=== PATIENT | male | born 1955 | race Caucasian/White ===

== ENCOUNTER → 2024-01-07 | Outpatient (CLI) | payer MEDICARE ==
--- NOTE | 2024-01-11 11:02 | PE ---
EXAMINATION TYPE: PET CT fusion skull to thigh DATE OF EXAM: 01/07/2024 CLINICAL INDICATION:Male, 68 years old with history of C34.2 MALIGNANT NEOPLASM OF MIDDLE LOBE, BRONC HUS; TECHNIQUE: Following the intravenous administration of 10.96 mCi of F-18 FDG, whole body images are performed from the skull base to the midthigh. Images are reviewed on the computer in the coronal, axial, and sagittal planes. Reconstructed rotating images are created on independent workstation and reviewed on the computer. A non-contrast CT is performed in conjunction with the PET scan. Glucose level 99 mg/dL CT DLP: 241 mGycm, Automated exposure control for dose reduction was used. COMPARISON: CT None, PET/CT None, FINDINGS: Mediastinal SUV mean is 2.1. Hepatic parenchyma SUV mean is 2.4. SKULL BASE AND NECK: * Left lower neck lymph node max SUV 3.6 measuring 5 mm in short axis. CHEST, MEDIASTINUM, AND HILAR REGION: No suspicious radiotracer activity. Abnormal radiotracer activity including: * Right perihilar soft tissue which is poorly evaluated without IV contrast measuring 2.6 x 1 point a centimeters on PET imaging. Max SUV 15.2. * Subcarinal lymph node max SUV 6.9 * Right low paratracheal lymph node max SUV 7.5. * Right high paratracheal max SUV 4.2. * Abnormal right tracer uptake within the left shoulder max SUV 8.9 and right supraclavicular region max SUV 8.6. * Right level 10R lymph node max SUV 15.7 measuring up to 2.3 cm on PET imaging. ABDOMEN AND PELVIS: No suspicious radiotracer activity. MUSCULOSKELETAL STRUCTURES: No suspicious radiotracer activity. OTHER CT: Atherosclerosis of the carotid bifurcations. Left chest wall [id number] tip terminates i n the superior vena cava. Mild to moderate coronary artery atherosclerosis. Scattered colonic diverti cula. IMPRESSION: Right perihilar FDG avid lymph nodes with mediastinal lymph nodes and left neck lymph nodes concernin g for malignancy. There is uptake within the left shoulder and right supraclavicular region which is poorly evaluated due to paucity of fat and streak artifact from [id number]-g-[id number] which may also represen t additional sites of metastatic disease.
== END | disposition home or self-care (01) ==
LOC: RADPETMAIN 09:39
PROVIDERS: ATTEND Internal Medicine Hematology & Oncology
DX: C34.2 Malignant neoplasm of middle lobe, bronchus or lung (principal); R59.0 Localized enlarged lymph nodes
CPT/HCPCS: 78815; A9552

== ENCOUNTER → 2024-06-28 | Outpatient (CLI) | payer MEDICARE ==
--- NOTE | 2024-07-18 18:56 | MR ---
EXAMINATION TYPE: MR SHOULDER RT WO/W INTRAVENOUS CON DATE OF EXAM: 06/28/2024 COMPARISON: FDG PET/CT 03/07/2024 HISTORY: Right shoulder pain, hx metastatic lung cancer. TECHNIQUE: Multiplanar, multiparameter MRI sequences of the right shoulder is performed without and w ith 7 mL intravenous Gadavist contrast material. FINDINGS: Subacromial/subdeltoid bursa: Mild-moderate volume of fluid noted. Rotator Cuff: Moderate intrasubstance T2 hyperintensity seen throughout the anterior to posterior ext ent of the supraspinatus tendon and, to a lesser extent, the infraspinatus tendon; changes consistent with relatively mild tendinosis with no partial or full-thickness rotator cuff tear. Subscapularis t endons have normal appearance as does the teres minor. Acromioclavicular Joint: Mild osteoarthritis changes with mild undersurface clavicular spurring produ cing minimal mass effect upon the myotendinous junction of the supraspinatus. Acromion is not downwar d sloping anteriorly or laterally Glenohumeral Joint: Mild osteoarthritis changes noted. Labrum: Intact on these non joint-distended sequences. Biceps Tendon: Intact and unremarkable. Skeletal structures: Tiny tug-related subchondral cysts at the infraspinatus tendon insertion upon th e humeral head noted. No suspicious/progressive bone findings. Extra articular soft tissues: No abnormalities. Contrast: No abnormal contrast-enhancement. IMPRESSION: Mild/moderate fluid within the subacromial/subdeltoid bursa. Negative for full-thickness or partial rotator cuff tear. Relatively mild tendinosis changes involvin g the supraspinatus > infraspinatus. Negative for metastatic neoplasm. [facility], , 07/18/2024 6:54 PM
== END | disposition home or self-care (01) ==
LOC: RADMRIMAIN 14:26
PROVIDERS: ATTEND Internal Medicine Hematology & Oncology
DX: C34.2 Malignant neoplasm of middle lobe, bronchus or lung

== ENCOUNTER 2024-08-09 11:53 | Observation (INO) | payer MEDICARE ==
[2024-08-09 12:45] LABS: ALT 22 U/L (4-49); AST 26 U/L (17-59); African American GFR (CKD) 79 (>60 ml/min/1.73 sqM); Albumin 3.5 g/dL (3.5-5.0); Alkaline Phosphatase 47 U/L (38-126); Anion Gap 6 mmol/L; Blood Urea Nitrogen 37 mg/dL (9-20); Calcium 8.2 mg/dL (8.4-10.2); Carbon Dioxide 23 mmol/L (22-30); Chloride 111 mmol/L (98-107); Glucose 88 mg/dL (74-99); Non-African American GFR(CKD) 68 (>60 ml/min/1.73 sqM); Sodium 140 mmol/L (137-145); Total Bilirubin 0.3 mg/dL (0.2-1.3); Total Protein 5.8 g/dL (6.3-8.2)
--- NOTE | 2024-08-09 12:47 | ED ---
General Adult HPI - General Chief complaint: Syncope Stated complaint: Syncope Time Seen by Provider: 08/09/24 11:56 Source: EMS Mode of arrival: EMS - History of Present Illness Initial comments: Dictation was produced using [employer] dictation software. please excuse any grammatical, word or spelling errors. Chief Complaint: 69-year-old male with history of cancer presents to the ER after syncopal event History of Present Illness: Patient 69-year-old male who is has past medical history of lung cancer gets treated with immunotherapy once monthly. He was at the primary care doctor's office for routine appointment. States that he has been having some groin pain. At the office he passed out. According to office documentation he was unconscious unresponsive for approximately 20 seconds. EMS was called he was given a liter of fluid. States at the bedside that he feels fine. Patient denies any pain complaints. Has never had any reactions like this to immunotherapy in the past. The ROS documented in this emergency department record has been reviewed and confirmed by me. Those systems with pertinent positive or negative responses have been documented in the HPI. All other systems are other negative and/or noncontributory. - Related Data Home Medications Medication Instructions Recorded Confirmed Aspirin EC [Ecotrin Low Dose] 81 mg PO BID 08/09/24 08/09/24 Benazepril HCl 20 mg PO DAILY 08/09/24 08/09/24 Cholecalciferol [Vitamin D3 (25 25 mcg PO HS 08/09/24 08/09/24 Mcg = 1000 Iu)] HYDROcodone/APAP 7.5-325MG [[place] 1 tab PO Q4H PRN 08/09/24 08/09/24 7.5-325] Multivitamins, Thera [Multivitamin 1 tab PO DAILY 08/09/24 08/09/24 (formulary)] Simvastatin [Zocor] 40 mg PO HS 08/09/24 08/09/24 Allergies Allergy/AdvReac Type Severity Reaction Status Date / Time No Known Allergies Allergy Verified 08/09/24 12:54 Review of Systems ROS Statement: Those systems with pertinent positive or pertinent negative responses have been documented in the HPI. ROS Other: All systems not noted in ROS Statement are negative. Past Medical History Past Medical History: Cancer, COPD, Hypertension Additional Past Medical History / Comment(s): thoracic aneurym, hypercholesterolemia History of Any Multi-Drug Resistant Organisms: None Reported Additional Past Surgical History / Comment(s): lung biopsy, vasectomy Past Psychological History: No Psychological Hx Reported Smoking Status: Current every day smoker Past Alcohol Use History: None Reported Past Drug Use History: None Reported General Exam - General Exam Comments Initial Comments: PHYSICAL EXAM: General Impression: Alert and oriented x3, not in acute distress HEENT: Normocephalic atraumatic, extra-ocular movements intact, pupils equal and reactive to light bilaterally, mucous membranes moist. Cardiovascular: Heart regular rate and rhythm Chest: Able to complete full sentences, no retractions, no tachypnea Abdomen: abdomen soft, non-tender, non-distended, no organomegaly Musculoskeletal: Pulses present and equal in all extremities, no peripheral edema Motor: no focal deficits noted Neurological: CN II-XII grossly intact, no focal motor or sensory deficits noted Skin: Intact with no visualized rashes Psych: Normal affect and mood Course Vital Signs 08/09/24 08/09/24 08/09/24 12:00 12:17 13:14 Temperature 93.9 F L Pulse Rate 52 L 50 L 52 L Respiratory 16 18 18 Rate Blood Pressure 96/57 82/50 95/58 O2 Sat by Pulse 96 94 L 100 Oximetry 08/09/24 13:34 Temperature Pulse Rate 49 L Respiratory 18 Rate Blood Pressure 97/53 O2 Sat by Pulse 100 Oximetry EKG Findings - EKG Comments: EKG Findings:: My EKG interpretation: Ventricular rate 49, sinus bradycardia,. 243, QRS 99, QTc 470. No OH prolongation, no QTC prolongation, no ST or T-wave changes noted. Overall, this EKG is unremarkable Medical Decision Making - Medical Decision Making Was pt. sent in by a medical professional or institution (, PA, COMIC BOOK ARTIST, urgent care, hospital, or care home...) When possible be specific @ -Primary care physician's office Did you speak to anyone other than the patient for history (EMS, parent, family, police, friend...)? What history was obtained from this source @ -Some history obtained from EMS Did you review nursing and triage notes (agree or disagree)? Why? @ -I reviewed and agree with nursing and triage notes Were old charts reviewed (outside hosp., previous admission, EMS record, old EKG, old radiological studies, urgent care reports/EKG's, care home records)? Report findings @ -PCP clinics charting was reviewed Differential Diagnosis (chest pain, altered mental status, abdominal pain women, abdominal pain men, vaginal bleeding, musculoskeletal, weakness, fever, dyspnea, syncope, headache, dizziness, GI bleed, back pain, seizure, CVA, palpatations, mental health)? @ -Differential Syncope: Valvular disease, hypertrophic cardiomyopathy, pulmonary embolism, tamponade, tachycardia, bradycardia, [place], hypovolemia, hemorrhage, dissection, anemia, intracranial hemorrhage, seizure, hypoglycemia, carbon monoxide poisoning, this is not meant to be an all-inclusive list. EKG interpreted by me (3pts min.). @ -See above X-rays interpreted by me (1pt min.). @ -None done CT interpreted by me (1pt min.). @ -None done U/S interpreted by me (1pt. min.). @ -None done What testing was considered but not performed or refused? (CT, X-rays, U/S, labs)? Why? @ -None What meds were considered but not given or refused? Why? @ -None Was smoking cessation discussed for >3mins.? @ -No Were there social determinants of health that impacted care today? How? (Homelessness, low income, unemployed, alcoholism, drug addiction, transportation, low edu. Level, literacy, decrease access to med. care, [place] [facility], rehab)? @ -No Was there de-escalation of care discussed even if they declined (Discuss DNR or withdrawal of care, Hospice)? DNR status @ -No What co-morbidities impacted this encounter? (DM, HTN, Smoking, COPD, CAD, Cancer, CVA, ARF, Chemo, Hep., AIDS, mental health diagnosis, sleep apnea, mo rbid obesity)? @ -Cancer history Was patient admitted / discharged? Hospital course, mention meds given and route, prescriptions, significant lab abnormalities, going to OR and other pertinent info. @ -69-year-old male presents to the emergency department after syncopized and at his primary care physician's office. Patient was found to be slightly hypotensive upon arrival. He is also slightly bradycardic. Patient Nuys any complaints. Well-appearing at the bedside. Laboratory evaluation obtained. Labs are within acceptable limits. Patient slightly hypothermic. Placed on Ashlee hugger. Pending inflammatory markers. Patient will be admitted for hydration further monitoring. Did you discuss the management of the patient with other professionals (professionals i.e. , PA, COMIC BOOK ARTIST, lab, RT, psych nurse, social science analyst, blast furnace tender, teacher, commercial credit officer, dependency case manager)? Give summary @ -Case discussed with hospitalist for admission Was critical care preformed (if so, how long)? @ -Yes, 33 minutes for management of unstable vital signs Undiagnosed new problem with uncertain prognosis? @ -No Drug Therapy requiring intensive monitoring for toxicity (Heparin, Nitro, Insulin, Cardizem)? @ -No Were any procedures done? @ -No Diagnosis/symptom? Acute, or Chronic, or Acute on Chronic? Uncomplicated (without systemic symptoms) or Complicated (systemic symptoms)? @ -Syncope Side effects of treatment? @ -No Exacerbation, Progression, or Severe Exacerbation? @ -No Poses a threat to life or bodily function? How? (Chest pain, [place], [place], pneumonia, PE, COPD, DKA, ARF, appy, cholecystitis, CVA, Diverticulitis, Homicidal, Suicidal, threat to staff... and all critical care pts) @ -yes - Lab Data Result diagrams: 08/09/24 12:24 08/09/24 12:24 Lab Results 08/09/24 08/09/24 08/09/24 Range/Units 12:24 12:24 12:24 WBC 4.5 (3.8-10.6) k/uL RBC 2.92 L (4.30-5.90) m/uL Hgb 9.9 L (13.0-17.5) gm/dL Hct 30.1 L (39.0-53.0) % MCV 102.8 H (80.0-100.0) fL MCH 34.0 (25.0-35.0) pg MCHC 33.1 (31.0-37.0) g/dL RDW 13.1 (11.5-15.5) % Plt Count 158 (150-450) k/uL MPV 7.5 Neutrophils % 50 % Lymphocytes % 33 % Monocytes % 4 % Eosinophils % 11 % Basophils % 0 % Neutrophils # 2.3 (1.3-7.7) k/uL Lymphocytes # 1.5 (1.0-4.8) k/uL Monocytes # 0.2 (0-1.0) k/uL Eosinophils # 0.5 (0-0.7) k/uL Basophils # 0.0 (0-0.2) k/uL Macrocytosis Slight Sodium 140 (137-145) mmol/L Potassium 4.0 (3.5-5.1) mmol/L Chloride 111 H (98-107) mmol/L Carbon Dioxide 23 (22-30) mmol/L Anion Gap 6 mmol/L BUN 37 H (9-20) mg/dL Creatinine 1.11 (0.66-1.25) mg/dL Est GFR (CKD-EPI)AfAm 79 (>60 ml/min/1.73 sqM) Est GFR (CKD-EPI)NonAf 68 (>60 ml/min/1.73 sqM) Glucose 88 (74-99) mg/dL Calcium 8.2 L (8.4-10.2) mg/dL Total Bilirubin 0.3 (0.2-1.3) mg/dL AST 26 (17-59) U/L ALT 22 (4-49) U/L Alkaline Phosphatase 47 (38-126) U/L Troponin I <0.012 (0.000-0.034) ng/mL Total Protein 5.8 L (6.3-8.2) g/dL Albumin 3.5 (3.5-5.0) g/dL Disposition Clinical Impression: Syncope Disposition: ADMITTED IP TO THIS HOSP Condition: Fair Referrals: Isa Hearn MD [Primary Care Provider] - 1-2 days Decision Time: 13:55
[2024-08-09 12:56] LABS: Basophils % (A) 0 %; Eosinophils # (A) 0.5 k/uL (0-0.7); Eosinophils % (A) 11 %; HCT 30.1 % (39.0-53.0); HGB 9.9 gm/dL (13.0-17.5); Lymphocytes # (A) 1.5 k/uL (1.0-4.8); Lymphocytes % (A) 33 %; MCHC 33.1 g/dL (31.0-37.0); MCV 102.8 fL (80.0-100.0); Macrocytosis Slight; Mean Platelet Volume 7.5; Monocytes # (A) 0.2 k/uL (0-1.0); Monocytes % (A) 4 %; Neutrophils # (A) 2.3 k/uL (1.3-7.7); Neutrophils % (A) 50 %; Platelet Count 158 k/uL (150-450); RBC 2.92 m/uL (4.30-5.90); RDW 13.1 % (11.5-15.5); WBC 4.5 k/uL (3.8-10.6)
[2024-08-09] MEDS: SODIUM CHLORIDE 0.9% 1,000 ML IV STA (13:33)
[2024-08-09] MEDS ORDERED: NALOXONE 0.4 MG/ML 1 ML VIAL IV PRN (13:50)
[2024-08-09] MEDS ORDERED: ONDANSETRON 4 MG/2 ML VIAL IVP PRN (13:50)
[2024-08-09] MEDS ORDERED: ACETAMINOPHEN TAB 325 MG TAB PO PRN (13:50)
--- NOTE | 2024-08-09 15:24 | US ---
EXAMINATION TYPE: US carotid duplex BILAT DATE OF EXAM: 08/09/2024 COMPARISON: NONE CLINICAL INDICATION: Male, 69 years old with history of Syncope; TECHNIQUE: Grayscale, color Doppler and spectral Doppler evaluation of the bilateral carotid systems and vertebral arteries.Indirect Doppler criteria was utilized. FINDINGS: EXAM MEASUREMENTS: RIGHT: Peak Systolic Velocity (PSV) cm/sec ----- Right CCA: 61.1 ----- Right ICA: 122.5 ----- Right ECA: 53.1 ICA/CCA ratio: 2.0 RIGHT: End Diastole cm/sec ----- Right CCA: 23.7 ----- Right ICA: 40.9 ----- Right ECA: 5.7 LEFT: Peak Systolic Velocity (PSV) cm/sec ----- Left CCA: 79.8 ----- Left ICA: 77.1 ----- Left ECA: 56.0 ICA/CCA ratio: 1.0 LEFT: End Diastole cm/sec ----- Left CCA: 24.8 ----- Left ICA: 32.8 ----- Left ECA: 5.6 VERTEBRALS (direction of flow): Right Vertebral: Antegrade Left Vertebral: Antegrade Rhythm: Normal IMPRESSION: Right: Less than 50% stenosis of the carotid bifurcation. Normal (no stenosis)=ICA PSV < 125 cm/s: ra marcie < 2.0: ICA EDV<40 cm/s. Left: Less than 50% stenosis of the carotid bifurcation. Normal (no stenosis)=ICA PSV < 125 cm/s: rat io < 2.0: ICA EDV<40 cm/s. Criteria for Assigning % of Stenosis / Diameter reduction (Estimation based on the indirect measurements of the internal carotid artery velocities (ICA PSV). 1. Normal (no stenosis)=ICA PSV < 125 cm/s: ratio < 2.0: ICA EDV<40 cm/s. 2. Less than 50% stenosis=ICA PSV < 125 cm/s: ratio < 2.0: ICA EDV<40 cm/s. 3. 50 to 69% stenosis=ICA PSV of 125 to 230 cm/s: ration 2.0 ? 4.0: ICA EDV 40-100 cm/s. 4. Greater than 70% stenosis to near occlusion= ICA PSV > 230 cm/s: ratio > 4.0: ICA EDV > 100 cm/s. 5. Near occlusion= ICA PSV velocities may be low or undetectable: variable ratio and ICA EDV. 6. Total occlusion=unable to detect flow. [facility], , 08/09/2024 3:22 PM
[2024-08-09] MEDS: SODIUM CHLORIDE 0.9% 1,000 ML IV SCH (15:56)
--- NOTE | 2024-08-09 15:58 | XR ---
EXAMINATION TYPE: XR chest 2V DATE OF EXAM: 08/09/2024 3:30 PM CLINICAL INDICATION: Male, 69 years old with history of syncope; [facility] COMPARISON: None TECHNIQUE: XR chest 2V Frontal view of the chest. FINDINGS: Lungs/Pleura: Subtle airspace opacities are seen in the right lower lung. There is no evidence of ple ural effusion, focal consolidation, or pneumothorax. Pulmonary vascularity: Unremarkable. Heart/mediastinum: Cardiomediastinal silhouette is unremarkable. Musculoskeletal: No acute osseous pathology. Other findings: None Lines/Tubes: [id number]-c-[id number] projecting over the left hemithorax with distal tip at the cavoatrial junction. IMPRESSION: Right lower lung airspace opacities correlate for developing pneumonia. [facility], , 08/09/2024 3:55 PM
[2024-08-09 16:33] LABS: Appearance,Urine Clear (Clear); Bilirubin,Urine Negative (Negative); Blood,Urine Negative (Negative); Color,Urine Colorless; Glucose,Urine (UA) Negative (Negative); Ketones,Urine Negative (Negative); Leukocyte Esterase,Urine Negative (Negative); Nitrite,Urine Negative (Negative); PH, Urine 5.5 (5.0-8.0); Protein,Urine Negative (Negative); Specific Gravity,Urine 1.014 (1.001-1.035); Urobilinogen,Urine <2.0 mg/dL (<2.0)
--- NOTE | 2024-08-09 21:54 | P.CONS ---
History of Present Illness - Reason for Consult Consult date: 08/09/24 SIRS Requesting physician: Arian Gordon - Chief Complaint Passed out x 1 day - History of Present Illness Patient is a 69-year-old male with a past medical history significant for COPD hypertension thoracic aneurysm, lung cancer on immunotherapy, current everyday smoker apparently patient did have a routine follow-up appointment with his primary care physician patient was having some groin pain and subsequently passed out in the physician office EMS was called and he received a fluid bolus and subsequently patient has been brought into the hospital on arrival and the patient was noted to be hypothermic with a temperature of 93.9 degrees following right patient was bradycardic mildly hypeotensive but not requiring any pressor support and not hypoxic, patient denies having any headache or URI symptoms denies having any chest pain shortness of breath or cough patient denies having any nausea vomiting abdominal pain and no diarrhea patient did have a white count of 4.5 with no left shift BUN was mildly elevated creatinine was normal liver enzymes are normal urine has been negative influenza RSV COVID testing has been negative patient did have a no focal consultation or pneumothorax, patient has been admitted to hospital infectious he was consulted for SIRS Review of Systems Positive point and negatives has been mentioned in the HPI, complete review of systems was performed and all other systems are negative Past Medical History Past Medical History: Cancer, COPD, Hypertension Additional Past Medical History / Comment(s): thoracic aneurym, hype rcholesterolemia History of Any Multi-Drug Resistant Organisms: None Reported Additional Past Surgical History / Comment(s): lung biopsy, vasectomy Past Psychological History: No Psychological Hx Reported Smoking Status: Current every day smoker Past Alcohol Use History: None Reported Past Drug Use History: None Reported Medications and Allergies Home Medications Medication Instructions Recorded Confirmed Type Aspirin EC [Ecotrin Low Dose] 81 mg PO BID 08/09/24 08/09/24 History Benazepril HCl 20 mg PO DAILY 08/09/24 08/09/24 History Cholecalciferol [Vitamin D3 (25 25 mcg PO HS 08/09/24 08/09/24 History Mcg = 1000 Iu)] HYDROcodone/APAP 7.5-325MG [[place] 1 tab PO Q4H PRN 08/09/24 08/09/24 History 7.5-325] Multivitamins, Thera [Multivitamin 1 tab PO DAILY 08/09/24 08/09/24 History (formulary)] Simvastatin [Zocor] 40 mg PO HS 08/09/24 08/09/24 History Allergies Allergy/AdvReac Type Severity Reaction Status Date / Time No Known Allergies Allergy Verified 08/09/24 12:54 Physical Exam Vitals: Vital Signs Temp Pulse Resp BP Pulse Ox 08/09/24 14:20 56 L 18 86/60 08/09/24 13:34 49 L 18 97/53 100 08/09/24 13:14 93.9 F L 52 L 18 95/58 100 08/09/24 12:17 50 L 18 82/50 94 L 08/09/24 12:00 52 L 16 96/57 96 Intake and Output 08/08/24 08/09/24 08/09/24 22:59 06:59 14:59 Other: Weight 68.039 kg GENERAL DESCRIPTION: Elderly male lying in bed, no distress. No tachypnea or accessory muscle of respiration use. HEENT: Shows Pallor , no scleral icterus. Oral mucous membrane is dry. NECK: Trachea central, no thyromegaly. LUNGS: Unlabored breathing. Clear to auscultation anteriorly. No wheeze or crac kle. HEART: S1, S2, regular rate and rhythm. No loud murmur ABDOMEN: Soft, no tenderness , guarding or rigidity, no organomegaly EXTREMITIES: No edema of feet. SKIN: No rash, no masses palpable. NEUROLOGICAL: The patient is awake, alert, oriented x3, mood and affect normal. Results CBC & Chem 7: 08/09/24 12:24 08/09/24 12:24 Labs: Abnormal Lab Results - Last 24 Hours (Table) 08/09/24 08/09/24 Range/Units 12:24 12:24 RBC 2.92 L (4.30-5.90) m/uL Hgb 9.9 L (13.0-17.5) gm/dL Hct 30.1 L (39.0-53.0) % MCV 102.8 H (80.0-100.0) fL Chloride 111 H (98-107) mmol/L BUN 37 H (9-20) mg/dL Calcium 8.2 L (8.4-10.2) mg/dL Total Protein 5.8 L (6.3-8.2) g/dL Assessment and Plan (1) Hypothermia Current Visit: Yes Status: Acute Code(s): T68.XXXA - HYPOTHERMIA, INITIAL E NCOUNTER SNOMED Code(s): 308363468 (2) SIRS (systemic inflammatory response syndrome) Current Visit: Yes Status: Acute Code(s): R65.10 - SIRS OF NON-INFECTIOUS ORIGIN W/O ACUTE ORGAN DYSFUNCTION SNOMED Code(s): 831085821 Plan: 1patient presented to the hospital after apparently the he did passed out at the physician office patient on arrival to the ER was noted to be hypothermic and did have bradycardia and mildly hypotensive however he did have a normal white count and no signs and symptoms suggestive of infectious etiology chest x- ray did not show any consolidation his abdomen is soft no evidence of any cell ulitis or joint swelling 2-we will follow-up on the blood culture as well as inflammatory markers 3-we will hold on adding any systemic antibiotic therapy while waiting for the workup to be completed We will follow on clinical condition and cultures to further adjust medication if needed Thank you for this consultation we will follow the patient along with you Dictation was produced using [email or web address] dictation software. please excuse any grammatical, word or spelling errors. Time with Patient: Greater than 30
[2024-08-10 06:00] VITALS: RESP 18
[2024-08-10] MEDS ORDERED: HYDROcodone/APAP 7.5-325MG 1 EACH TAB PO PRN (08:32)
[2024-08-10] MEDS ORDERED: IOPAMIDOL CONTRAST (ORAL USE) VIAL PO PRN (09:29)
--- NOTE | 2024-08-10 09:35 | CA ---
Transthoracic Echo Report Name: Praful Farmer Age: 69 Gender: M : 1955 Exam Date: 08/09/2024 15:45 Exam Location: [place] [facility] Ht (in): 70 Wt (lb): 150 Ordering Physician: Yamilex Killian MD Attending/Referring Phys: Dust Sampler Gina Martin RDCS Procedure CPT: Indications: Syncope Cardiac Hx: Technical Quality: Fair Contrast 1: Total Dose (mL): Contrast 2: Total Dose (mL): MEASUREMENTS (Male / Female) Normal Values 2D ECHO LV Diastolic Diameter PLAX 4.9 cm 4.2 - 5.9 / 3.9 - 5.3 cm LV Systolic Diameter PLAX 2.5 cm IVS Diastolic Thickness 1.1 cm 0.6 - 1.0 / 0.6 - 0.9 cm LVPW Diastolic Thickness 1.3 cm 0.6 - 1.0 / 0.6 - 0.9 cm LV Relative Wall Thickness 0.5 RV Internal Dim ED PLAX 3.3 cm LA Volume 54.4 cm??? 18 - 58 / 22 - 52 cm??? LA Volume Index 29.7 cm???/m??? 16 - 28 cm???/m??? M-MODE Aortic Root Diameter MM 3.0 cm LA Systolic Diameter MM 5.1 cm LA Ao Ratio MM 1.7 AV Cusp Separation MM 5.0 cm DOPPLER AV Peak Velocity 141.7 cm/s AV Peak Gradient 8.0 mmHg AV Mean Velocity 106.3 cm/s AV Mean Gradient 4.9 mmHg AV Velocity Time Integral 34.8 cm LVOT Peak Velocity 108.3 cm/s LVOT Peak Gradient 4.7 mmHg LVOT Velocity Time Integral 30.2 cm MV Area PHT 3.6 cm??? Mitral E Point Velocity 87.1 cm/s Mitral A Point Velocity 76.9 cm/s Mitral E to A Ratio 1.1 MV Deceleration Time 211.9 ms MV E' Velocity 10.4 cm/s Mitral E to MV E' Ratio 8.4 TR Peak Velocity 184.7 cm/s TR Peak Gradient 13.6 mmHg Right Ventricular Systolic Press 18.6 mmHg FINDINGS Left Ventricle Mildly increased left ventricular wall thickness. Left ventricular cavity size normal. Normal left ventricular systolic function with no obvious regional wall motion abnormalities. Left ventricular ejection fraction is estimated at 55-60 %. Right Ventricle Normal right ventricular size and function. Right ventricular systolic pressure within normal limits. Right Atrium Normal right atrial size. Normal right atrial size. Left Atrium Mildly increased left atrial volume. Mitral Valve Structurally normal mitral valve. No mitral stenosis. Mild mitral regurgitation. Mitral valve thickened. Mild mitral annular calcification. Aortic Valve Possibly Trileaflet aortic valve. No aortic valve stenosis or regurgitation. Mildly calcified Tricuspid Valve Structurally normal tricuspid valve. Mild tricuspid regurgitation. Pulmonic Valve Structurally normal pulmonic valve. Trace pulmonic regurgitation. Pericardium No pericardial effusion. Aorta Normal size aortic root and proximal ascending aorta. CONCLUSIONS Normal LV size and systolic function. Aortic valve sclerosis with mild calcification. Mild mitral annular calcification. Mild mitral and tricuspid insufficiency. No pericardial effusion. No pulmonary hypertension Previewed by: Dr. Anat Jeff MD (Electronically Signed) Final Date: 10 August 2024 09:34
[2024-08-10] MEDS: lisinopriL 20 MG TAB PO SCH (09:39)
[2024-08-10] MEDS: ASPIRIN 81 MG PO SCH (09:39)
[2024-08-10] MEDS: MULTIVITAMINS, THERA 1 EACH TAB PO SCH (09:39)
--- NOTE | 2024-08-10 10:22 | CT ---
EXAMINATION TYPE: CT pelvis wo con CT DLP: 242.5 mGycm, Automated exposure control for dose reduction was used. DATE OF EXAM: 08/10/2024 10:01 AM COMPARISON: PET CT 03/07/2024 CLINICAL INDICATION:Male, 69 years old with history of right groin pain; right inguinal pain x1 year TECHNIQUE: Standard CT of the pelvis without IV or oral contrast. Lack of IV or oral contrast limit s evaluation of solid and hollow organ viscera. Coronal and sagittal reformats were performed. FINDINGS: BLADDER: Unremarkable REPRODUCTIVE: Bilateral hydroceles. BOWEL: No focal bowel wall thickening or surrounding inflammatory changes. Distal colonic diverticulo sis without evidence for acute diverticulitis. Moderate amount of stool present within the rectum. No evidence of bowel obstruction. PERITONEUM: No evidence of pneumoperitoneum or free fluid. VASCULATURE: Moderate atherosclerotic calcification of the visualized aorta and its branches. MUSCULOSKELETAL: No acute osseous abnormalities. Osteoarthritic changes of both hips with right great er than left. Mild degenerative disc disease of the visualized lower lumbar spine. LYMPH NODES: No gross evidence for lymphadenopathy. SOFT TISSUE/ABDOMINAL WALL: Unremarkable. No inguinal hernia identified. IMPRESSION: 1. No acute pelvic process within limitations of a noncontrast exam. 2. Bilateral hydroceles. 3. Colonic diverticulosis without evidence for acute diverticulitis. 4. Osteoarthritic changes of both hips with right greater than left. [facility], , 08/10/2024 10:19 AM
[2024-08-10 10:41] VITALS: BP 92/57; PULSE 52; TEMP 98.1
--- NOTE | 2024-08-10 11:10 | P.CRDCN ---
History of Present Illness Consult date: 08/10/24 Reason for Consult (text): Bradycardia History of present illness: This is a 69-year-old male with past medical history of hyperlipidemia, hype rtension. We have been asked to evaluate the patient for bradycardia. Patient states that he has had an ongoing problem with a right groin pain or hernia. He went to his PCP and while he was in the office, his physician was manipulating the right groin and he developed significant pain sweats and blacked out. He states he is feeling fine now. He states he has been up and walking in the hallways without any difficulty. No lightheadedness or dizziness. He denies having any chest pain or shortness of breath. Blood pressure 92/57, heart rate 52, pulse ox 99% on room air. Patient's lowest heart rate was 49. EKG: Sinus rhythm with no acute ST-T wave changes. Chest x-ray: Right lower lung airspace opacities correlate for developing pneumonia. Carotid ultrasound: Less than 50% stenosis bilateral carotid bifurcation Echocardiogram reveals EF of 55 to 60%. Aortic valve sclerosis with mild calcification. Mild mitral calcification. Mild mitral and tricuspid insufficiency. No pericardial effusion. No pulmonary hypertension. Pelvis CT no acute process. Laboratory studies: WBC 4.5, hemoglobin 9.9. Sodium 140, potassium 4, BUN 37 and creatinine 1.11. Troponin negative x 1. TSH 3.05. Procalcitonin 0.05. C- reactive protein less than 0.5. Influenza A, influenza B, RSV, COVID-19 not detected. UA negative. Home cardiac medications: Aspirin 81 mg twice daily, benazepril 20 mg daily, simvastatin 40 mg daily Review Of Systems: At the time of my exam: CONSTITUTIONAL: Denies fever or chills. HEENT: Denies blurred vision, vision changes, or eye pain. Denies hemoptysis CARDIOVASCULAR: Denies chest pain. Denies orthopnea. Denies PND. Denies palpitations RESPIRATORY: Denies shortness of breath. GASTROINTESTINAL: Denies abdominal pain. Denies nausea or vomiting. HEMATOLOGIC: Denies bleeding disorders. GENITOURINARY: Denies any blood in urine. SKIN: Denies puritis. Denies rash. Physical examination: Gen: This is a 69-year-old male in no acute distress VS: reviewed HEENT: Head is atraumatic, normocephalic. Pupils equal, round. Sclerae is anicteric. NECK: Supple. No JVD. LUNGS: Clear to auscultation. No wheezes or rhonchi. No intercostal retractions. HEART: Regular rate and rhythm. No murmur. ABDOMEN: Soft No tenderness. EXTREMITIES: No pedal edema. No calf tenderness. NEUROLOGICAL: Patient is awake, alert and oriented x3. Assessment: Asymptomatic bradycardia Vasovagal episodes secondary to pain Hyperlipidemia Hypertension currently low blood pressure readings Plan: Resume patient's home cardiac medications but hold benazepril until patient is home Patient is cleared for discharge from cardiology May follow-up with Dr. Ford in 2 weeks. Thank you kindly for this consultation. Nurse practitioner note has been reviewed, I agree with documented findings and plan of care. Patient was seen and examined. Past Medical History Past Medical History: Cancer, COPD, Hypertension Additional Past Medical History / Comment(s): thoracic aneurym, hypercholesterolemia History of Any Multi-Drug Resistant Organisms: None Reported Additional Past Surgical History / Comment(s): lung biopsy, vasectomy Past Psychological History: No Psychological Hx Reported Smoking Status: Current every day smoker Past Alcohol Use History: None Reported Past Drug Use History: None Reported Medications and Allergies Home Medications Medication Instructions Recorded Confirmed Type Aspirin EC [Ecotrin Low Dose] 81 mg PO BID 08/09/24 08/09/24 History Benazepril HCl 20 mg PO DAILY 08/09/24 08/09/24 History Cholecalciferol [Vitamin D3 (25 25 mcg PO HS 08/09/24 08/09/24 History Mcg = 1000 Iu)] HYDROcodone/APAP 7.5-325MG [[place] 1 tab PO Q4H PRN 08/09/24 08/09/24 History 7.5-325] Multivitamins, Thera [Multivitamin 1 tab PO DAILY 08/09/24 08/09/24 History (formulary)] Simvastatin [Zocor] 40 mg PO HS 08/09/24 08/09/24 History Allergies Allergy/AdvReac Type Severity Reaction Status Date / Time No Known Allergies Allergy Verified 08/09/24 12:54 Physical Exam Vitals: Vital Signs Temp Pulse Resp BP Pulse Ox 08/10/24 07:21 98.0 F 61 18 110/64 99 08/10/24 05:59 61 18 119/56 98 08/10/24 04:00 56 L 16 104/60 98 08/10/24 02:09 65 08/10/24 00:05 58 L 16 98/62 97 08/09/24 22:34 97.8 F 60 17 105/62 08/09/24 19:22 59 L 18 08/09/24 18:08 97.8 F 60 18 88/47 96 08/09/24 16:32 97.8 F 51 L 18 103/60 99 08/09/24 14:20 56 L 18 86/60 08/09/24 13:34 49 L 18 97/53 100 08/09/24 13:14 93.9 F L 52 L 18 95/58 100 08/09/24 12:17 50 L 18 82/50 94 L 08/09/24 12:00 52 L 16 96/57 96 Results 08/09/24 12:24 08/09/24 12:24 Cardiac Enzymes 08/09/24 08/09/24 Range/Units 12:24 12:24 AST 26 (17-59) U/L Troponin I <0.012 (0.000-0.034) ng/mL CBC 08/09/24 Range/Units 12:24 WBC 4.5 (3.8-10.6) k/uL RBC 2.92 L (4.30-5.90) m/uL Hgb 9.9 L (13.0-17.5) gm/dL Hct 30.1 L (39.0-53.0) % Plt Count 158 (150-450) k/uL Comprehensive Metabolic Panel 08/09/24 Range/Units 12:24 Sodium 140 (137-145) mmol/L Potassium 4.0 (3.5-5.1) mmol/L Chloride 111 H (98-107) mmol/L Carbon Dioxide 23 (22-30) mmol/L BUN 37 H (9-20) mg/dL Creatinine 1.11 (0.66-1.25) mg/dL Glucose 88 (74-99) mg/dL Calcium 8.2 L (8.4-10.2) mg/dL AST 26 (17-59) U/L ALT 22 (4-49) U/L Alkaline Phosphatase 47 (38-126) U/L Total Protein 5.8 L (6.3-8.2) g/dL Albumin 3.5 (3.5-5.0) g/dL Current Medications Generic Name Dose Route Start Last Admin Trade Name Freq PRN Reason Stop Dose Admin Acetaminophen 650 mg 08/09/24 13:50 Acetaminophen Tab 325 Mg Tab PO Q6HR PRN Mild Pain or Fever > 100.5 Sodium Chloride 1,000 mls @ 75 mls/hr 08/09/24 14:00 08/10/24 04:36 Saline 0.9% IV Not Given .[id number] JOSUE Naloxone HCl 0.2 mg 08/09/24 13:50 Naloxone 0.4 Mg/Ml 1 Ml Vial IV Q2M PRN Opioid Reversal Ondansetron HCl 4 mg 08/09/24 13:50 Ondansetron 4 Mg/2 Ml Vial IVP Q8HR PRN Nausea And Vomiting 08/09/24 12:24 08/09/24 12:24
--- NOTE | 2024-08-10 12:35 | P.HPIM ---
History of Present Illness H&P Date: 08/09/24 Praful Farmer, is a 69-year-old male who presented to [facility] emergency room with a chief complaint of syncope. Patient reports he was at his PCP getting examined for right groin pain when he experienced significant pain with exam and then became lightheaded and apparently had a syncopal episode. Patient denies any associated chest pain or shortness of breath. Patient denies nausea vomiting or diarrhea. Patient denies any urinary burning or frequency He was evaluated in the emergency room vital examination on presentation revealed temp 97.8, heart rate 60, respiratory rate 18, blood pressure 103/60 with a pulse ox of 99% on room air Laboratory data reveals white blood cell 4.5, hemoglobin 9.9, creatinine 1.11 bun 37 troponin negative procalcitonin 0.05. UA negative influenza RSV and COVID-19 negative Testing in the emergency room revealed EKG showing sinus bradycardia with first- degree AV block, carotid Doppler less than 50% stenosis bilaterally. 2D echo completed showing an EF of 55 to 60%. Chest x-ray showing right lower lung airspace opacities correlate for developing pneumonia Patient was admitted to medical floor for further evaluation and treatment. C ardiology and infectious disease services consulted Past medical history is significant for lung cancer, COPD, hypertension, hyperlipidemia, thoracic aneurysm and nicotine dependence On review of systems. Patient is alert and oriented x 3. Patient is complaining of right groin pain with palpation. Patient denies chest pain or shortness of breath. Patient denies any urinary burning or frequency Review of Systems Please refer to HPI otherwise unremarkable Past Medical History Past Medical History: Cancer, COPD, Hypertension Additional Past Medical History / Comment(s): thoracic aneurym, hyperchol esterolemia History of Any Multi-Drug Resistant Organisms: None Reported Additional Past Surgical History / Comment(s): lung biopsy, vasectomy Past Psychological History: No Psychological Hx Reported Smoking Status: Current every day smoker Past Alcohol Use History: None Reported Past Drug Use History: None Reported Medications and Allergies Home Medications Medication Instructions Recorded Confirmed Type Aspirin EC [Ecotrin Low Dose] 81 mg PO BID 08/09/24 08/09/24 History Benazepril HCl 20 mg PO DAILY 08/09/24 08/09/24 History Cholecalciferol [Vitamin D3 (25 25 mcg PO HS 08/09/24 08/09/24 History Mcg = 1000 Iu)] HYDROcodone/APAP 7.5-325MG [[place] 1 tab PO Q4H PRN 08/09/24 08/09/24 History 7.5-325] Multivitamins, Thera [Multivitamin 1 tab PO DAILY 08/09/24 08/09/24 History (formulary)] Simvastatin [Zocor] 40 mg PO HS 08/09/24 08/09/24 History Allergies Allergy/AdvReac Type Severity Reaction Status Date / Time No Known Allergies Allergy Verified 08/09/24 12:54 Physical Exam Vitals: Vital Signs Temp Pulse Resp BP Pulse Ox 08/09/24 14:20 56 L 18 86/60 08/09/24 13:34 49 L 18 97/53 100 08/09/24 13:14 93.9 F L 52 L 18 95/58 100 08/09/24 12:17 50 L 18 82/50 94 L 08/09/24 12:00 52 L 16 96/57 96 Intake and Output 08/08/24 08/09/24 08/09/24 22:59 06:59 14:59 Other: Weight 68.039 kg In general patient is alert and oriented x 3 in no distress HEENT head normocephalic and atraumatic Neck is supple no JVD no goiter no lymphadenopathy no carotid bruit Chest examination is clear to auscultation no crackles no wheezing Cardiac exam reveals regular heart sounds S1 and S2 no gallops no murmurs Abdomen is soft nontender no organomegaly with normal bowel sounds Extremity exam reveals no edema no cyanosis or clubbing Neurological examination reveals no gross focal deficits Results CBC & Chem 7: 08/09/24 12:24 08/09/24 12:24 Labs: Abnormal Lab Results - Last 24 Hours (Table) 08/09/24 08/09/24 Range/Units 12:24 12:24 RBC 2.92 L (4.30-5.90) m/uL Hgb 9.9 L (13.0-17.5) gm/dL Hct 30.1 L (39.0-53.0) % MCV 102.8 H (80.0-100.0) fL Chloride 111 H (98-107) mmol/L BUN 37 H (9-20) mg/dL Calcium 8.2 L (8.4-10.2) mg/dL Total Protein 5.8 L (6.3-8.2) g/dL Assessment and Plan Assessment: 1. Syncopal episode likely vasovagal secondary to pain 2. Right groin pain 3. History of hypertension 4. History of hyperlipidemia 5. History of lung cancer currently on immunotherapy 6. Current every day smoker At this time patient will be admitted Cardiology and infectious disease services consulted Pelvic CT ordered Carotid Doppler and 2D echo completed Time with Patient: Greater than 30 (Greater than 60% of the total time spent in counseling and coordination of care)
--- NOTE | 2024-08-10 12:39 | P.DS ---
Providers Date of admission: 08/09/24 13:52 Expected date of discharge: 08/10/24 Attending physician: Yamilex Killian Consults: 08/09/24 13:50 Consult Physician Routine Consulting Provider: Cassi Baptiste Consult Reason/Comments: sirs Do you want consulting provider notified?: Yes 08/09/24 13:54 Consult Physician Routine Consulting Provider: Reinaldo Ruiz Consult Reason/Comments: bradycardia Do you want consulting provider notified?: Yes Primary care physician: Isa Hearn Hospital Course: Discharge diagnosis 1. Syncopal episode likely vasovagal secondary to pain 2. Right groin pain 3. History of hypertension 4. History of hyperlipidemia 5. History of lung cancer currently on immunotherapy 6. Current every day smoker 7. Bilateral hydrocele. Patient will need follow-up with urology services outpatient for further management. Hospital course Praful Farmer, is a 69-year-old male who presented to [facility] emergency room with a chief complaint of syncope. Patient reports he was at his PCP getting examined for right groin pain when he experienced significant pain with exam and then became lightheaded and apparently had a syncopal episode. Patient denies any associated chest pain or shortness of breath. Patient denies nausea vomiting or diarrhea. Patient denies any urinary burning or frequency He was evaluated in the emergency room vital examination on presentation revealed temp 97.8, heart rate 60, respiratory rate 18, blood pressure 103/60 with a pulse ox of 99% on room air Laboratory data reveals white blood cell 4.5, hemoglobin 9.9, creatinine 1.11 bun 37 troponin negative procalcitonin 0.05. UA negative influenza RSV and COVID-19 negative Testing in the emergency room revealed EKG showing sinus bradycardia with first- degree AV block, carotid Doppler less than 50% stenosis bilaterally. 2D echo completed showing an EF of 55 to 60%. Chest x-ray showing right lower lung airspace opacities correlate for developing pneumonia Patient was admitted to medical floor for further evaluation and treatment. Cardiology and infectious disease services consulted Past medical history is significant for lung cancer, COPD, hypertension, hyperlipidemia, thoracic aneurysm and nicotine dependence On review of systems. Patient is alert and oriented x 3. Patient is comp laining of right groin pain with palpation. Patient denies chest pain or shortness of breath. Patient denies any urinary burning or frequency On 08/10/2024 patient is alert and oriented x 3. Patient is very eager to be DC'd home. CT of pelvis completed showing no acute pelvis process. Did show bilateral hydroceles patient may need follow-up with urology outpatient. Patient was evaluated by cardiology services patient may be discharged home and follow-up outpatient. Per infectious disease no need for systemic antibiotic therapy. Patient denies chest pain or shortness of breath. Patient denies nausea vomiting or diarrhea. Patient denies any urinary burning or frequency Patient Condition at Discharge: Stable Plan - Discharge Summary New Discharge Prescriptions: Continue Cholecalciferol [Vitamin D3 (25 Mcg = 1000 Iu)] 25 mcg PO HS Simvastatin [Zocor] 40 mg PO HS Benazepril HCl 20 mg PO DAILY Aspirin EC [Ecotrin Low Dose] 81 mg PO BID Multivitamins, Thera [Multivitamin (formulary)] 1 tab PO DAILY HYDROcodone/APAP 7.5-325MG [[place] 7.5-325] 1 tab PO Q4H PRN PRN Reason: Pain Discharge Medication List Aspirin EC [Ecotrin Low Dose] 81 mg PO BID 08/09/24 [History] Benazepril HCl 20 mg PO DAILY 08/09/24 [History] Cholecalciferol [Vitamin D3 (25 Mcg = 1000 Iu)] 25 mcg PO HS 08/09/24 [History] HYDROcodone/APAP 7.5-325MG [[place] 7.5-325] 1 tab PO Q4H PRN 08/09/24 [History] Multivitamins, Thera [Multivitamin (formulary)] 1 tab PO DAILY 08/09/24 [History] Simvastatin [Zocor] 40 mg PO HS 08/09/24 [History] Follow up Appointment(s)/Referral(s): Alessandro Ford MD [STAFF PHYSICIAN] - 2 Weeks Isa Hearn MD [Primary Care Provider] - 1-2 days Discharge Disposition: HOME SELF-CARE
[2024-08-10] MEDS ORDERED: CHOLECALCIFEROL 25 MCG (1000 IU) TABLET PO SCH (21:00)
[2024-08-10] MEDS ORDERED: ATORVASTATIN 20 MG TAB PO SCH (21:00)
== END 2024-08-10 11:27 | disposition home or self-care (01) ==
LOC: EC 11:53 → 3SCARD 13:52 → INTOOBSV 13:52 → 3SCARD 16:07
PROVIDERS: ADMIT Internal Medicine; ATTEND Internal Medicine
DX: R55 Syncope and collapse (principal); R10.31 Right lower quadrant pain; E78.00 Pure hypercholesterolemia, unspecified; I10 Essential (primary) hypertension; N43.3 Hydrocele, unspecified; R65.10 Systemic inflammatory response syndrome (SIRS) of non-infectious origin without acute organ dysfunction; J44.9 Chronic obstructive pulmonary disease, unspecified; T68.XXXA Hypothermia, initial encounter; I95.9 Hypotension, unspecified; F17.200 Nicotine dependence, unspecified, uncomplicated; R11.2 Nausea with vomiting, unspecified; I44.0 Atrioventricular block, first degree; I08.3 Combined rheumatic disorders of mitral, aortic and tricuspid valves; Z79.82 Long term (current) use of aspirin; Z79.899 Other long term (current) drug therapy; Z85.118 Personal history of other malignant neoplasm of bronchus and lung; Z87.09 Personal history of other diseases of the respiratory system
CPT/HCPCS: 96360; 96361; 99285; 36415; 93005; 93306; 80053; 84443; 84484; 85025; 86140; 81003; 87040; 84145; 87636; 71046; 93880; 72192; G0378 ×2

== ENCOUNTER → 2024-08-18 | Outpatient (CLI) | payer MEDICARE ==
--- NOTE | 2024-08-20 08:05 | PE ---
EXAMINATION TYPE: PET CT fusion skull to thigh DATE OF EXAM: 08/18/2024 CLINICAL INDICATION:Male, 69 years old with history of C34.2 LUNG CANCER; TECHNIQUE: Following the intravenous administration of 13.5 mCi of F-18 FDG, whole body images are performed from the skull base to the midthigh. Images are reviewed on the computer in the coronal, a xial, and sagittal planes. Reconstructed rotating images are created on independent workstation and reviewed on the computer. A non-contrast CT is performed in conjunction with the PET scan. Glucose level 110 mg/dL CT DLP: 277.67 mGycm, Automated exposure control for dose reduction was used. COMPARISON: CT 08/10/2024, PET/CT 03/07/2024, MRI: None FINDINGS: Mediastinal SUV mean is 1.8. Hepatic parenchyma SUV mean is 2.82. SKULL BASE AND NECK: Left neck lymph nodes which are new max SUV 11.0 measuring 9 mm in short axis. CHEST, MEDIASTINUM, AND HILAR REGION: * Right pulmonary hilum lymph nodes max SUV 6.4. * 10 R lymph node max SUV 10.1. Measuring 9 mm in short axis. * Stable right upper lung peripheral consolidation. ABDOMEN AND PELVIS: * Patchy uptake within the prostate gland max SUV 4.2. MUSCULOSKELETAL STRUCTURES: OTHER CT: * Atherosclerosis of the carotid bifurcations. * Left chest wall [id number] tip terminates in the superior vena cava. * Mild to moderate coronary artery atherosclerosis. * Scattered colonic diverticula. * Mild cardiomegaly. * Circumferential bladder wall thickening. * * * * IMPRESSION: New FDG avid right pulmonary hilum, right 10 R lymph nodes as well as left lower neck lymph nodes con cerning for recurrence. [facility], , 08/20/2024 8:02 AM
== END | disposition home or self-care (01) ==
LOC: RADPETMAIN 11:36
PROVIDERS: ATTEND Internal Medicine Hematology & Oncology
DX: C34.2 Malignant neoplasm of middle lobe, bronchus or lung (principal); R91.1 Solitary pulmonary nodule; I25.10 Atherosclerotic heart disease of native coronary artery without angina pectoris; K57.30 Diverticulosis of large intestine without perforation or abscess without bleeding; I51.7 Cardiomegaly; I65.29 Occlusion and stenosis of unspecified carotid artery
CPT/HCPCS: 78815; A9552

== ENCOUNTER 2024-08-23 12:16 | Observation (INO) | payer MEDICARE ==
--- NOTE | 2024-08-23 13:03 | ED ---
General Adult HPI - General Chief complaint: Dizziness Stated complaint: hypotension Time Seen by Provider: 08/23/24 12:30 Source: patient, RN/MD, RN notes reviewed, old records reviewed Mode of arrival: wheelchair Limitations: no limitations - History of Present Illness Initial comments: This is a 69-year-old male with a past medical history significant for lung cancer. Patient close to see his oncologist every month for shot. Patient states that he was nauseous before he saw his oncologist today and then when he got to the office he got really lightheaded and almost passed out. Patient states he broke out and quite sweaty as well. Patient denies any chest pain or palpitation. Patient states when he felt like he was in a pass out he also felt somewhat short of breath. Patient states currently he no longer feels short of breath or lightheaded. But he is lying down in bed. Patient denies any fever chills or cough. Patient states he had an episode of this about a month ago where he actually did pass out patient states since he has had chronic nausea he has not been eating or drinking as much as he should. Patient denies any vomit ing or diarrhea. - Related Data Home Medications Medication Instructions Recorded Confirmed Aspirin EC [Ecotrin Low Dose] 81 mg PO BID 08/09/24 08/23/24 Benazepril HCl 20 mg PO DAILY 08/09/24 08/23/24 Cholecalciferol [Vitamin D3 (25 25 mcg PO HS 08/09/24 08/23/24 Mcg = 1000 Iu)] HYDROcodone/APAP 7.5-325MG [[place] 1 tab PO Q4H PRN 08/09/24 08/23/24 7.5-325] Multivitamins, Thera [Multivitamin 1 tab PO DAILY 08/09/24 08/23/24 (formulary)] Simvastatin [Zocor] 40 mg PO HS 08/09/24 08/23/24 Allergies Allergy/AdvReac Type Severity Reaction Status Date / Time No Known Allergies Allergy Verified 08/23/24 14:02 Review of Systems ROS Statement: Those systems with pertinent positive or pertinent negative responses have been documented in the HPI. ROS Other: All systems not noted in ROS Statement are negative. Past Medical History Past Medical History: Cancer, COPD, Hypertension Additional Past Medical History / Comment(s): lung cancer currently on chemo 08/2024, thoracic aneurym, hypercholesterolemia History of Any Multi-Drug Resistant Organisms: None Reported Additional Past Surgical History / Comment(s): lung biopsy, vasectomy Past Psychological History: No Psychological Hx Reported Smoking Status: Current every day smoker Past Alcohol Use History: None Reported Past Drug Use History: None Reported General Exam - General Exam Comments Initial Comments: GENERAL: Patient is well-developed and well-nourished. Patient is nontoxic and well-hydr ated and is in no acute distress. ENT: Neck is soft and supple. No significant lymphadenopathy is noted. Oropharynx is clear. Moist mucous membranes. Neck has full range of motion without eliciting any pain. EYES: The sclera were anicteric and conjunctiva were pink and moist. Extraocular mov ements were intact and pupils were equal round and reactive to light. Eyelids were unremarkable. PULMONARY: Unlabored respirations. Good breath sounds bilaterally. No audible rales rhonchi or wheezing was noted. CARDIOVASCULAR: Patient is bradycardic at open start beats per minute ABDOMEN: Soft and nontender with normal bowel sounds. SKIN: Skin is clear with no lesions or rashes and otherwise unremarkable. NEUROLOGIC: Patient is alert and oriented x3. Cranial nerves II through XII are grossly intact. Motor and sensory are also intact. Normal speech, volume and content. Symmetrical smile. MUSCULOSKELETAL: Normal extremities with adequate strength and full range of motion. No lower extremity swelling or edema. No calf tenderness. LYMPHATICS: No significant lymphadenopathy is noted PSYCHIATRIC: Normal psychiatric evaluation. Limitations: no limitations Course Vital Signs 08/23/24 08/23/24 08/23/24 12:23 12:35 12:56 Temperature 97.1 F L Pulse Rate 63 53 L 62 Respiratory 18 18 Rate Blood Pressure 72/46 78/51 84/48 Blood Pressure [Left Arm Sitting] Blood Pressure [Left Arm Standing] Blood Pressure [Left Arm Supine] O2 Sat by Pulse 100 97 100 Oximetry 08/23/24 08/23/24 08/23/24 13:10 13:12 13:15 Temperature Pulse Rate Respiratory Rate Blood Pressure Blood Pressure 75/52 [Left Arm Sitting] Blood Pressure 79/50 [Left Arm Standing] Blood Pressure 74/46 [Left Arm Supine] O2 Sat by Pulse Oximetry 08/23/24 08/23/24 08/23/24 13:33 14:19 15:51 Temperature Pulse Rate 54 L 58 L 73 Respiratory 14 18 18 Rate Blood Pressure 81/53 97/61 107/69 Blood Pressure [Left Arm Sitting] Blood Pressure [Left Arm Standing] Blood Pressure [Left Arm Supine] O2 Sat by Pulse 100 100 97 Oximetry Medical Decision Making - Medical Decision Making EKG is interpreted by myself but EKG shows sinus bradycardia at 52 bpm CO interval is 235 QRS is 100 QT interval is 471 QTc is 452. Patient's EKG shows no ST segment elevation Was pt. sent in by a medical professional or institution (, [facility], [employer], urgent care, hospital, or retirement...) When possible be specific @ -Patient was sent in by Dr. Johnson Did you speak to anyone other than the patient for history (EMS, parent, family, police, friend...)? What history was obtained from this source @ -No Did you review nursing and triage notes (agree or disagree)? Why? @ -I reviewed and agree with nursing and triage notes Were old charts reviewed (outside hosp., previous admission, EMS record, old EK G, old radiological studies, urgent care reports/EKG's, retirement records)? Report findings @ -No old charts were reviewed Differential Diagnosis? @ -Differential Syncope: Valvular disease, hypertrophic cardiomyopathy, pulmonary embolism, tamponade, tachycardia, bradycardia, CA, hypovolemia, hemorrhage, dissection, anemia, intracranial hemorrhage, seizure, hypoglycemia, carbon monoxide poisoning, this is not meant to be an all-inclusive list. EKG interpreted by me (3pts min.). @ -As above X-rays interpreted by me (1pt min.). @ -None done CT interpreted by me (1pt min.). @ -None U/S interpreted by me (1pt. min.). @ -None done What testing was considered but not performed or refused? (CT, X-rays, U/S, labs)? Why? @ -None What meds were considered but not given or refused? Why? @ -None Did you discuss the management of the patient with other professionals (professionals i.e. CINDY Adams, [employer], lab, RT, psych nurse, social and human services assistant, occupational psychologist, teacher, special service officer, telephonic case manager)? Give summary @ -I spoke with Dr. Killian he wanted the patient minute admitted the patient I wrote admitting orders Was smoking cessation discussed for >3mins.? @ -No Was critical care preformed (if so, how long)? @ -No Were there social determinants of health that impacted care today? How? (Homelessness, low income, unemployed, alcoholism, drug addiction, transportation, low edu. Level, literacy, decrease access to med. care, fci, rehab)? @ -No Was there de-escalation of care discussed even if they declined (Discuss DNR or withdrawal of care, Hospice)? DNR status @ -No What co-morbidities impacted this encounter? (DM, HTN, Smoking, COPD, CAD, Cancer, CVA, ARF, Chemo, Hep., AIDS, mental health diagnosis, sleep apnea, morbid obesity)? @ -None Was patient admitted / discharged? Hospital course, mention meds given and route, prescriptions, significant lab abnormalities, going to OR and other pertinent info. @ -Patient came in because he was hypotensive and near syncopal episode and patient was given a liter of fluid prior to arrival another 1.5 L while he was here his blood pressure was significantly improved. Patient's BUN was 36 with creatinine 1.13 and so patient will be admitted to Dr. Killian Undiagnosed new problem with uncertain prognosis? @ -No Drug Therapy requiring intensive monitoring for toxicity (Heparin, Nitro, Insulin, Cardizem)? @ -No Were any procedures done? @ -No Diagnosis/symptom? @ -Hypotension Acute, or Chronic, or Acute on Chronic? @ -Acute Uncomplicated (without systemic symptoms) or Complicated (systemic symptoms)? @ -Complicated Side effects of treatment? @ -No Exacerbation, Progression, or Severe Exacerbation? @ -No Poses a threat to life or bodily function? How? (Chest pain, USA, CA, pneumonia, PE, COPD, DKA, ARF, appy, cholecystitis, CVA, Diverticulitis, Homicidal, Suicidal, threat to staff... and all critical care pts) @ -Yes this can lead to syncope and trauma Diagnosis/symptom? @ -Dehydration Acute, or Chronic, or Acute on Chronic? @ -Acute Uncomplicated (without systemic symptoms) or Complicated (systemic symptoms)? @ -Complicated Side effects of treatment? @ -None Exacerbation, Progression, or Severe Exacerbation] @ -No Poses a threat to life or bodily function? @ -No - Lab Data Result diagrams: 08/23/24 12:51 08/23/24 12:51 Lab Results 08/23/24 08/23/24 08/23/24 Range/Units 12:51 12:51 12:51 WBC 6.3 (3.8-10.6) k/uL RBC 2.91 L (4.30-5.90) m/uL Hgb 10.0 L (13.0-17.5) gm/dL Hct 28.8 L (39.0-53.0) % MCV 99.1 (80.0-100.0) fL MCH 34.3 (25.0-35.0) pg MCHC 34.6 (31.0-37.0) g/dL RDW 11.9 (11.5-15.5) % Plt Count 145 L (150-450) k/uL MPV 7.4 Neutrophils % 50 % Lymphocytes % 30 % Monocytes % 6 % Eosinophils % 12 % Basophils % 0 % Neutrophils # 3.2 (1.3-7.7) k/uL Lymphocytes # 1.9 (1.0-4.8) k/uL Monocytes # 0.4 (0-1.0) k/uL Eosinophils # 0.8 H (0-0.7) k/uL Basophils # 0.0 (0-0.2) k/uL PT 10.7 (10.0-12.5) sec INR 1.0 (<1.2) APTT 28.1 (22.0-30.0) sec Sodium 135 L (137-145) mmol/L Potassium 3.9 (3.5-5.1) mmol/L Chloride 105 (98-107) mmol/L Carbon Dioxide 22 (22-30) mmol/L Anion Gap 8 mmol/L BUN 36 H (9-20) mg/dL Creatinine 1.13 (0.66-1.25) mg/dL Est GFR (CKD-EPI)AfAm 77 (>60 ml/min/1.73 sqM) Est GFR (CKD-EPI)NonAf 67 (>60 ml/min/1.73 sqM) Glucose 79 (74-99) mg/dL Calcium 8.6 (8.4-10.2) mg/dL Magnesium 1.9 (1.6-2.3) mg/dL Total Bilirubin 0.4 (0.2-1.3) mg/dL AST 29 (17-59) U/L ALT 19 (4-49) U/L Alkaline Phosphatase 43 (38-126) U/L Troponin I (0.000-0.034) ng/mL Total Protein 5.8 L (6.3-8.2) g/dL Albumin 3.6 (3.5-5.0) g/dL 08/23/24 Range/Units 12:51 WBC (3.8-10.6) k/uL RBC (4.30-5.90) m/uL Hgb (13.0-17.5) gm/dL Hct (39.0-53.0) % MCV (80.0-100.0) fL MCH (25.0-35.0) pg MCHC (31.0-37.0) g/dL RDW (11.5-15.5) % Plt Count (150-450) k/uL MPV Neutrophils % % Lymphocytes % % Monocytes % % Eosinophils % % Basophils % % Neutrophils # (1.3-7.7) k/uL Lymphocytes # (1.0-4.8) k/uL Monocytes # (0-1.0) k/uL Eosinophils # (0-0.7) k/uL Basophils # (0-0.2) k/uL PT (10.0-12.5) sec INR (<1.2) APTT (22.0-30.0) sec Sodium (137-145) mmol/L Potassium (3.5-5.1) mmol/L Chloride (98-107) mmol/L Carbon Dioxide (22-30) mmol/L Anion Gap mmol/L BUN (9-20) mg/dL Creatinine (0.66-1.25) mg/dL Est GFR (CKD-EPI)AfAm (>60 ml/min/1.73 sqM) Est GFR (CKD-EPI)NonAf (>60 ml/min/1.73 sqM) Glucose (74-99) mg/dL Calcium (8.4-10.2) mg/dL Magnesium (1.6-2.3) mg/dL Total Bilirubin (0.2-1.3) mg/dL AST (17-59) U/L ALT (4-49) U/L Alkaline Phosphatase (38-126) U/L Troponin I <0.012 (0.000-0.034) ng/mL Total Protein (6.3-8.2) g/dL Albumin (3.5-5.0) g/dL Disposition Clinical Impression: Dehydration, Hypotension Disposition: ADMITTED IP TO THIS HOSP Referrals: Isa Hearn MD [Primary Care Provider] - 1-2 days Time of Disposition: 15:54
[2024-08-23] MEDS: SODIUM CHLORIDE 0.9% 1,000 ML IV ONE ×2 (13:21→16:37)
[2024-08-23] MEDS: ONDANSETRON 4 MG/2 ML VIAL IVP STA (13:23)
[2024-08-23 13:25] LABS: Basophils % (A) 0 %; Eosinophils # (A) 0.8 k/uL (0-0.7); Eosinophils % (A) 12 %; HCT 28.8 % (39.0-53.0); Lymphocytes # (A) 1.9 k/uL (1.0-4.8); Lymphocytes % (A) 30 %; MCH 34.3 pg (25.0-35.0); MCHC 34.6 g/dL (31.0-37.0); MCV 99.1 fL (80.0-100.0); Mean Platelet Volume 7.4; Monocytes # (A) 0.4 k/uL (0-1.0); Monocytes % (A) 6 %; Neutrophils # (A) 3.2 k/uL (1.3-7.7); Neutrophils % (A) 50 %; Platelet Count 145 k/uL (150-450); RBC 2.91 m/uL (4.30-5.90); RDW 11.9 % (11.5-15.5); WBC 6.3 k/uL (3.8-10.6)
[2024-08-23] MEDS: SODIUM CHLORIDE 0.9% 500 ML 500 ML IV ONE (13:30)
[2024-08-23 13:37] LABS: ALT 19 U/L (4-49); AST 29 U/L (17-59); African American GFR (CKD) 77 (>60 ml/min/1.73 sqM); Albumin 3.6 g/dL (3.5-5.0); Alkaline Phosphatase 43 U/L (38-126); Anion Gap 8 mmol/L; Blood Urea Nitrogen 36 mg/dL (9-20); Calcium 8.6 mg/dL (8.4-10.2); Carbon Dioxide 22 mmol/L (22-30); Chloride 105 mmol/L (98-107); Glucose 79 mg/dL (74-99); Magnesium 1.9 mg/dL (1.6-2.3); Non-African American GFR(CKD) 67 (>60 ml/min/1.73 sqM); Potassium 3.9 mmol/L (3.5-5.1); Sodium 135 mmol/L (137-145); Total Bilirubin 0.4 mg/dL (0.2-1.3); Total Protein 5.8 g/dL (6.3-8.2)
[2024-08-23 13:39] LABS: Partial Thromboplastin Time 28.1 sec (22.0-30.0); Prothrombin Time 10.7 sec (10.0-12.5)
--- NOTE | 2024-08-23 14:02 | XR ---
EXAMINATION TYPE: XR chest 2V DATE OF EXAM: 08/23/2024 1:57 PM COMPARISON: Chest radiographs from 08/09/2024, PET CT 08/18/2024 TECHNIQUE: XR chest 2V Frontal and lateral views of the chest. CLINICAL INDICATION:Male, 69 years old with history of Chest Pain; FINDINGS: Lungs/Pleura: No pleural effusion or pneumothorax. Hyperinflation. No focal consolidation. Pulmonary vascularity: Unremarkable. Heart/mediastinum: Cardiomediastinal silhouette is unremarkable. Musculoskeletal: No acute osseous pathology. Other findings: Left chest wall subclavian approach Mediport catheter distal tip in the mid SVC. IMPRESSION: No acute cardiopulmonary disease/process. [facility], , 08/23/2024 2:00 PM
[2024-08-23 18:42] VITALS: RESP 16
[2024-08-23] MEDS ORDERED: HYDROcodone/APAP 7.5-325MG 1 EACH TAB PO PRN (19:56)
--- NOTE | 2024-08-23 21:34 | MR ---
EXAMINATION TYPE: MR brain wo/w con DATE OF EXAM: 08/23/2024 COMPARISON: None HISTORY: N/V with lung cancer, rule out brain mets. CONTRAST: Performed utilizing 7 mL intravenous Gadavist gadolinium contrast. TECHNIQUE: Multiplanar, multiecho imaging on a 3.0 Mattie magnet is performed through the brain. Stud y is performed within 24 hours of arrival to the hospital. The craniovertebral junction is normal. The pituitary is normal. Diffusion-weighted imaging is performed. No abnormal hyperintensity is present to suggest an acute i ntracranial infarct or acute ischemic change. There are mild scattered punctate areas of hyperintensity on T2 and Inversion Recovery weighted seque nces which are non-specific but can be related to microvascular ischemic changes. Ventricles and sulci are appropriate for the patient age. Following contrast administration no abnormal enhancement is evident. Mucosal thickening is the left ethmoid air cells. Anterior and mid right ethmoid air cell mucosal thi ckening is present. Small air-fluid level may be within the right maxillary sinus with maxillary wall thickening elsewhere. Frontal sinuses and sphenoid sinuses are clear. Left maxillary sinus appears c lear. Mastoid air cells are clear IMPRESSION: 1. No suspicious changes to suggest metastatic lesions. 2. Chronic appearing Periventricular white matter ischemic type changes [facility], , 08/23/2024 9:31 PM
[2024-08-23] MEDS: ASPIRIN 81 MG PO SCH (22:16)
[2024-08-23] MEDS: ATORVASTATIN 20 MG TAB PO SCH (22:17)
[2024-08-23] MEDS: CHOLECALCIFEROL 25 MCG (1000 IU) TABLET PO SCH (22:17)
[2024-08-24 07:19] VITALS: PULSE 62
[2024-08-24] MEDS: MULTIVITAMINS, THERA 1 EACH TAB PO SCH (08:23)
[2024-08-24] MEDS: lisinopriL 10 MG TAB PO SCH (08:24)
[2024-08-24 08:32] LABS: Basophils # (A) 0.05 X 10*3/uL (0.00-0.10); Basophils % (A) 1.2 %; Eosinophils # (A) 0.75 X 10*3/uL (0.04-0.35); Eosinophils % (A) 17.7 %; HCT 25.2 % (39.6-50.0); HGB 8.7 g/dL (13.0-17.0); Lymphocytes # (A) 1.46 X 10*3/uL (0.90-5.00); Lymphocytes % (A) 34.5 %; MCHC 34.5 g/dL (32.0-37.0); MCV 98.4 FL (80.0-97.0); Mean Platelet Volume 10.8 FL (9.5-12.2); Monocytes # (A) 0.37 X 10*3/uL (0.20-1.00); Monocytes % (A) 8.7 %; NRBC Per 100 WBC 0 X 10*3/uL (0.00-0.01); Neutrophils # (A) 1.59 X 10*3/uL (1.80-7.70); Neutrophils % (A) 37.7 %; Platelet Count 131 X 10*3/uL (140-440); RBC 2.56 X 10*6/uL (4.40-5.60); RDW 12.1 % (11.5-14.5); WBC 4.23 X 10*3/uL (4.50-10.00)
[2024-08-24 08:52] LABS: Calcium 8.3 mg/dL (8.7-10.3); Carbon Dioxide 21.3 mmol/L (21.6-31.8); Chloride 107 mmol/L (96-109); Glucose 76 mg/dL (70-110); Potassium 4.4 mmol/L (3.5-5.5); Sodium 139 mmol/L (135-145)
--- NOTE | 2024-08-24 12:20 | P.HPIM ---
History of Present Illness H&P Date: 08/23/24 Praful Farmer, is a 69-year-old male who presented to [facility] emergency room with a chief complaint of dizziness and hypotension. Patient apparently was at his oncologist appointment when he became lightheaded and almost passed out. Patient denies loss of consciousness. He was evaluated in the emergency room vital examination on presentation revealed temp 97.9, heart rate 72, respiratory rate 16, blood pressure 97/55 Laboratory data reveals white blood cell 6.3, hemoglobin 10.0, creatinine 1.13 and bun 36 Testing in the emergency room revealed EKG sinus bradycardia with first-degree AV block, chest x-ray showing no acute cardiopulmonary disease or process. MRI of the brain showing no suspicious changes to suggest metastatic lesions chronic appearing periventricular white matter ischemic type change Patient was admitted to medical floor for further evaluation and treatment. Oncology services consulted Past medical history is significant for lung cancer in which she is currently on immunotherapy, current everyday smoker, hypertension, hyperlipidemia patient was also recently here and treated for a syncopal episode in which she was evaluated by cardiology services during this stay patient was found to have bilateral hydroceles. Recent echocardiogram completed showing an EF of 55 to 60%. Carotid Doppler also completed showing negative for stenosis. On review of systems patient is alert and oriented x 3. Patient denies chest pain or shortness of breath. Patient denies nausea vomiting or diarrhea. Patient denies any urinary burning or frequency Review of Systems Please refer to HPI otherwise unremarkable Past Medical History Past Medical History: Cancer, COPD, Hypertension Additional Past Medical History / Comment(s): lung cancer currently on chemo 08/2024, thoracic aneurym, hypercholesterolemia History of Any Multi-Drug Resistant Organisms: None Reported Additional Past Surgical History / Comment(s): lung biopsy, vasectomy Past Psychological History: No Psychological Hx Reported Smoking Status: Current every day smoker Past Alcohol Use History: None Reported Past Drug Use History: None Reported Medications and Allergies Home Medications Medication Instructions Recorded Confirmed Type Aspirin EC [Ecotrin Low Dose] 81 mg PO BID 08/09/24 08/23/24 History Benazepril HCl 20 mg PO DAILY 08/09/24 08/23/24 History Cholecalciferol [Vitamin D3 (25 25 mcg PO HS 08/09/24 08/23/24 History Mcg = 1000 Iu)] HYDROcodone/APAP 7.5-325MG [[place] 1 tab PO Q4H PRN 08/09/24 08/23/24 History 7.5-325] Multivitamins, Thera [Multivitamin 1 tab PO DAILY 08/09/24 08/23/24 History (formulary)] Simvastatin [Zocor] 40 mg PO HS 08/09/24 08/23/24 History Allergies Allergy/AdvReac Type Severity Reaction Status Date / Time No Known Allergies Allergy Verified 08/23/24 14:02 Physical Exam Vitals: Vital Signs Temp Pulse Resp BP BP BP BP 08/23/24 14:19 58 L 18 97/61 08/23/24 13:33 54 L 14 81/53 08/23/24 13:15 79/50 08/23/24 13:12 75/52 08/23/24 13:10 74/46 08/23/24 12:56 62 18 84/48 08/23/24 12:35 53 L 78/51 08/23/24 12:23 97.1 F L 63 18 72/46 Pulse Ox 08/23/24 14:19 100 08/23/24 13:33 100 08/23/24 13:15 08/23/24 13:12 08/23/24 13:10 08/23/24 12:56 100 08/23/24 12:35 97 08/23/24 12:23 100 Intake and Output 08/22/24 08/23/24 08/23/24 22:59 06:59 14:59 Other: Weight 68.039 kg In general patient is alert and oriented -3 in no distress HEENT head normocephalic and atraumatic Neck is supple no JVD no goiter no lymphadenopathy no carotid bruit Chest examination is clear to auscultation no crackles no wheezing Cardiac exam reveals regular heart sounds S1 and S2 no gallops no murmurs Abdomen is soft nontender no organomegaly with normal bowel sounds Extremity exam reveals no edema no cyanosis or clubbing Neurological examination reveals no gross focal deficits Results CBC & Chem 7: 08/24/24 05:03 08/24/24 05:03 Labs: Abnormal Lab Results - Last 24 Hours (Table) 08/23/24 08/23/24 Range/Units 12:51 12:51 RBC 2.91 L (4.30-5.90) m/uL Hgb 10.0 L (13.0-17.5) gm/dL Hct 28.8 L (39.0-53.0) % Plt Count 145 L (150-450) k/uL Eosinophils # 0.8 H (0-0.7) k/uL Sodium 135 L (137-145) mmol/L BUN 36 H (9-20) mg/dL Total Protein 5.8 L (6.3-8.2) g/dL Assessment and Plan Assessment: 1. Dizziness and hypotension 2. History of lung cancer patient receives immunotherapy monthly patient was at oncology appointment when episode occurred 3. Recent syncopal episode. 2D echo and carotid Doppler recently completed. 4. History of essential hypertension 5. History of hyperlipidemia 6. Current everyday smoker 7. History of bilateral hydroceles patient to follow-up outpatient with urology services DVT prophylaxis Lovenox. GI prophylax Protonix Oncology services consulted No need to repeat carotid Doppler 2D echo recent results in electronic record Repeat labs ordered for a.m. Time with Patient: Greater than 30 (Greater than 60% of the total time spent in counseling and coordination of care)
[2024-08-24 12:33] VITALS: TEMP 98
[2024-08-24 12:34] VITALS: BP 103/66
--- NOTE | 2024-08-24 13:50 | P.DS ---
Providers Date of admission: 08/23/24 15:57 Expected date of discharge: 08/24/24 Attending physician: Yamilex Killian Consults: 08/23/24 15:54 Consult Physician Urgent Consulting Provider: Melissa Johnson Consult Reason/Comments: Lung cancer Do you want consulting provider notified?: Yes [facility] [place] [facility] Course: Discharge diagnosis 1. Dizziness and hypotension 2. History of lung cancer patient receives immunotherapy monthly patient was at oncology appointment when episode occurred 3. Recent syncopal episode. 2D echo and carotid Doppler recently completed. 4. History of essential hypertension 5. History of hyperlipidemia 6. Current everyday smoker 7. History of bilateral hydroceles patient to follow-up outpatient with urology services Hospital course Praful Farmer, is a 69-year-old male who presented to [facility] emergency room with a chief complaint of dizziness and hypotension. Patient apparently was at his oncologist appointment when he became lightheaded and almost passed out. Patient denies loss of consciousness. He was evaluated in the emergency room vital examination on presentation revealed temp 97.9, heart rate 72, respiratory rate 16, blood pressure 97/55 Laboratory data reveals white blood cell 6.3, hemoglobin 10.0, creatinine 1.13 and bun 36 Testing in the emergency room revealed EKG sinus bradycardia with first-degree AV block, chest x-ray showing no acute cardiopulmonary disease or process. MRI of the brain showing no suspicious changes to suggest metastatic lesions chronic appearing periventricular white matter ischemic type change Patient was admitted to medical floor for further evaluation and treatment. Oncology services consulted Past medical history is significant for lung cancer in which she is currently on immunotherapy, current everyday smoker, hypertension, hyperlipidemia patient was also recently here and treated for a syncopal episode in which she was evaluated by cardiology services during this stay patient was found to have bilateral hydroceles. Recent echocardiogram completed showing an EF of 55 to 60%. Carotid Doppler also completed showing negative for stenosis. On review of systems patient is alert and oriented x 3. Patient denies chest pain or shortness of breath. Patient denies nausea vomiting or diarrhea. Patient denies any urinary burning or frequency On 08/24/2024 patient is alert and oriented x 3. Patient eager to be DC'd home. Patient's SHANNA inhibitor will be cut to half and patient was started on hydrocortisone per oncology services patient to follow-up with PCP and oncology services for further management at this time patient denies chest pain or shortness of breath. Patient denies nausea vomiting or diarrhea. Patient denies any urinary burning or frequency Patient Condition at Discharge: Stable Plan - Discharge Summary Discharge Rx Participant: No New Discharge Prescriptions: New Hydrocortisone [Cortef] 10 mg PO BID 7 Days #14 tab Continue Cholecalciferol [Vitamin D3 (25 Mcg = 1000 Iu)] 25 mcg PO HS Simvastatin [Zocor] 40 mg PO HS Aspirin EC [Ecotrin Low Dose] 81 mg PO BID Multivitamins, Thera [Multivitamin (formulary)] 1 tab PO DAILY HYDROcodone/APAP 7.5-325MG [[place] 7.5-325] 1 tab PO Q4H PRN PRN Reason: Pain Changed Benazepril HCl 10 mg PO DAILY 30 Days #30 tab Discharge Medication List Aspirin EC [Ecotrin Low Dose] 81 mg PO BID 08/09/24 [History] Cholecalciferol [Vitamin D3 (25 Mcg = 1000 Iu)] 25 mcg PO HS 08/09/24 [History] HYDROcodone/APAP 7.5-325MG [[place] 7.5-325] 1 tab PO Q4H PRN 08/09/24 [History] Multivitamins, Thera [Multivitamin (formulary)] 1 tab PO DAILY 08/09/24 [History] Simvastatin [Zocor] 40 mg PO HS 08/09/24 [History] Benazepril HCl 10 mg PO DAILY 30 Days #30 tab 08/24/24 [Rx] Hydrocortisone [Cortef] 10 mg PO BID 7 Days #14 tab 08/24/24 [Rx] Follow up Appointment(s)/Referral(s): Isa Hearn MD [Primary Care Provider] - 1-2 days Melissa Johnson MD [STAFF PHYSICIAN] - 1 Week Activity/Diet/Wound Care/Special Instructions: Activity as tolerated diet heart healthy Discharge Disposition: HOME SELF-CARE
[2024-08-24] MEDS: HYDROCORTISONE 10 MG TAB PO SCH (13:54)
[2024-08-25] MEDS ORDERED: PANTOPRAZOLE 40 MG TABLET PO SCH (07:30)
[2024-08-25] MEDS ORDERED: ENOXAPARIN 40 MG/0.4 ML SYRINGE SQ SCH (09:00)
[2024-08-25 10:51] LABS: % Iron Saturation 31.2 (15.00-50.00)
== END 2024-08-24 14:28 | disposition home or self-care (01) ==
LOC: EC 12:16 → 5NMEDONC 15:57
PROVIDERS: ADMIT Internal Medicine; ATTEND Internal Medicine
DX: I95.9 Hypotension, unspecified (principal); E86.0 Dehydration; I44.0 Atrioventricular block, first degree; N43.3 Hydrocele, unspecified; E78.00 Pure hypercholesterolemia, unspecified; I10 Essential (primary) hypertension; R00.1 Bradycardia, unspecified; F17.200 Nicotine dependence, unspecified, uncomplicated; Z79.52 Long term (current) use of systemic steroids; Z79.899 Other long term (current) drug therapy; Z85.118 Personal history of other malignant neoplasm of bronchus and lung; Z92.21 Personal history of antineoplastic chemotherapy
CPT/HCPCS: 96361 ×3; 96374; 99285; 36415; 93005; 82747; 80053; 80048; 84443; 82533; 82607; 82728; 83540; 83550; 83735; 84484; 85025 ×2; 85610; 85730; 71046; 70553; G0378 ×2; J2405; A9585

== ENCOUNTER 2024-11-11 10:38 | Day surgery (SDC) | payer MEDICARE ==
[~2024-11-11 10:38] MED LIST: ALPRAZolam 0.25 MG TAB PO PRN; ALPRAZolam 0.5 MG TAB PO PRN; NITROGLYCERIN SL TABS 0.4 MG TAB SUBLINGUAL PRN
[2024-11-11] MEDS: SODIUM CHLORIDE 0.9% 1,000 ML IV ONE (11:21)
[2024-11-11] MEDS: LIDOCAINE 1% INJ 10MG/ML (20 ML MDV) SQ ONE (12:43)
[2024-11-11] MEDS: fentaNYL (PF) 50 MCG/1 ML VIAL IVP ONE (12:43)
[2024-11-11] MEDS: VERAPAMIL SYRINGE (5 MG/10 ML) INTRAARTER ONE (12:43)
[2024-11-11] MEDS: MIDAZOLAM 2 MG/2 ML VIAL IVP ONE (12:43)
[2024-11-11] MEDS: HEPARIN SODIUM 1,000 UN/ML (10ML VL) IVP ONE (12:49)
[2024-11-11] MEDS: HEPARIN SODIUM,PORCINE 10,000 UNIT in SODIUM CHLORIDE 0.9% 1,000 ML IRRIGATION PRN (12:50)
[2024-11-11] MEDS: HEPARIN SODIUM,PORCINE (1 ML) 2,500 UNIT in SODIUM CHLORIDE 0.9% 250 ML IRRIGATION PRN (12:51)
[2024-11-11] MEDS: IOPAMIDOL-370 100ML BTL INJ ONE (13:33)
[2024-11-11] MEDS ORDERED: RX INFO: IV CONTRAST WAS GIVEN 1 EACH MISC MISCELLANE PRN (13:39)
--- NOTE | 2024-11-11 13:39 | P.CARDCATH ---
Date of Procedure: 11/11/24 Preoperative Diagnosis: DIAGNOSTIC CORONARY ANGIOGRAPHY and LEFT HEART CATH REPORT PROCEDURES PERFORMED: Left heart catheterization Selective coronary angiography Moderate conscious sedation 14 mins Right radial access INDICATION: Abnormal stress test BRIEF HPI: 69-year-old male with past medical history of lung cancer on maintenance immune based chemotherapy. He has had 2 episodes of admission to the hospital because of passing out while in doctor's office. From patient's history it seems it could be related to vasovagal and dehydration. 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 Because of his symptoms of fatigue we did perform a treadmill echo stress test with EKG and echo portion showing ischemic changes including 0.[address] depressions in inferolateral leads and echo showing impaired systolic augmentation during stress and some inferolateral hypokinesia during treadmill exercise. For this we performed a heart catheterization. CONSENT: I have explained the procedural steps of above-mentioned procedures in layman's terms to the patient. I discussed the risks (including but not limited to stroke, emergent vascular or cardiac surgery or ), benefits and alternative therapies for the above-mentioned procedure. I discussed the risks of sedation/analgesia and blood product administration (if indicated). The patient has indicated understanding and acceptance of these risks. Conscious Sedation: Patient's ECG, heart rate, blood pressure, pulse oximetry were monitored throughout the duration of procedure under my direct supervision. 1 mg Versed and 50 mcg Fentanyl were used for induction of moderate conscious sedation. Total duration of moderate concious sedation 14 minutes. PROCEDURAL DETAILS: Patient was prepped and draped in sterile fashion. 1% lidocaine was infiltrated over the right radial artery. Right radial access was obtained via modified seldinger technique. Medications: 5mg of verapamil was administed in the radial sheet. 4000 Units of Heparin was administed once the catheter reached the aortic root Wires and Catheter used: J wire was advanced under fluroscopy to get ot aortic root, JL 3.5 to selectively engage the left coronary ostium. JR4 to selectively engage the right coronary ostium. JR 4 catheter was used to obtain left julio tricular pressure and pressure gradint across aortic valve. Angiographic images were reviewed in detail. Catheter and wire were removed. Radial sheet was flushed. The right radial sheath was removed and a TR band was placed. Patent hemostasis was achieved. The patient tolerated the procedure well. Patient was transported back to the post catheterization holding area in stable condition. TECHNICAL DETAILS Total contrast used: Isovue [60 ml] Complications: [none] Estimated Blood loss: less than 15 ml HEMODYNAMICS: Aortic Pressure: 118/74 mmHg. LV pressure: 118/5 mmHg. LVEDP 10 mmHg. There was no significant gradient across the aortic valve. SELECTIVE CORONARY ARTERIOGRAPHY: LEFT MAIN: The left main is short and large caliber vessel. It bifurcates into the LAD and circumflex. Distal LAD appears to have 50% calcific stenosis. LEFT ANTERIOR DESCENDING CORONARY ARTERY: LAD is a large caliber vessel which wraps around to the apex. Proximal LAD has mild calcific luminal irregular ities. Mid LAD gives rise to a medium size diagonal branch and septal branch. At the bifurcation site of diagonal branch, mid LAD appears to have a 50 to 60% stenosis with haziness. Distal LAD appears to have mild calcific luminal irregularities. LEFT CIRCUMFLEX CORONARY ARTERY: It is nondominant vessel. Left circumflex is a moderate caliber vessel. It appears to have mild diffuse calcific disease. It gives rise to OM branches which appears to be patent. RIGHT CORONARY ARTERY: Dominant vessel. The right coronary artery is a large caliber vessel which gives PDA and PLV branch. RCA appears to have mild diffuse calcific disease. IMPRESSION: 50% distal left main calcific stenosis 50 to 60% mid LAD stenosis with haziness Mild nonobstructive disease in RCA PLAN: IFR assessment done by Dr. Luong for mid LAD and distal left main was positive at 0.81 respectively. Plan for surgical evaluation 125 cc/h for 4 hours Admit overnight. If no plan for surgery, plan for staged PCI with Dr. Watt on outpatient basis. Performing Physician Kye Alcantara MD, FACC, RPVI Thank you for allowing [facility] to participate in this patient's care. Feel free to reach out in case of any followup questions.
[2024-11-11] MEDS: SODIUM CHLORIDE 0.9% 1,000 ML IV SCH (15:12)
--- NOTE | 2024-11-11 15:30 | P.GSCN ---
History of Present Illness Consult date: 11/11/24 Reason for Consult: Left main coronary artery disease Requesting physician: Kye Alcantara History of present illness: This is a 69-year-old gentleman who follows outpatient with Dr. Isa Hearn for primary care and Dr. Alcantara for cardiology. He has a previous medical history of non-small cell lung cancer status post chemotherapy maintained on immunotherapy, hypertension, hyperlipidemia, and current tobacco dependence. Apparently the patient has had 2 recent syncopal episodes, 1 at his primary care physician office and another at his oncology office. He was hospitalized in August, syncopal episodes were felt to be due to a combination of blood pressure medications, anemia, and adrenal insufficiency. He did have an echocardiogram in July demonstrating normal left ventricular systolic function with EF 55-60%, mild mitral and mild tricuspid regurgitation. He was recommended to undergo treadmill stress test which was completed in September which was abnormal with ST depressions in the inferior and inferolateral leads concerning for ischemia. Due to this finding he was brought in today to the [facility] to undergo heart catheterization by Dr. Alcantara demonstrating 50% left main stenosis with 50% mid LAD stenosis. Further, Dr. Watt completed IFR of the left main which was flow-limiting at 0.8. Due to this finding consultation was placed to cardiothoracic surgery for revascularization recommendations. I have reviewed the cath films and met the patient. I have advised CABG for severe Left main disease. However, we noted that he does have positive lymph nodes on the recent PET scan and this is not mentioned in the recent oncology notes. The patient is not aware of this as well. He is scheduled to see his oncologist for immunotherapy next week. We have asked him to follow up in our office after that to discuss CABG surgery vs LM stent options. The patient is agreeable to evaluation for CABG. I have d/w Dr. Alcantara as well. Thank you for the consultation. Review of Systems Review of systems was completed and was negative except as noted - Cardiovascular Reports syncope Past Medical History Past Medical History: Cancer, COPD, Hyperlipidemia, Hypertension, Syncope Additional Past Medical History / Comment(s): Non-small cell lung cancer stage IIIa diagnosed in August 2023, status post 3 rounds of carbo/Taxol, remains on opdivo, thoracic aneursym History of Any Multi-Drug Resistant Organisms: None Reported Past Surgical History: Heart Catheterization, Tonsillectomy Additional Past Surgical History / Comment(s): lung biopsy(EBUS, mediastinoscopy), vasectomy Past Anesthesia/Blood Transfusion Reactions: No Reported Reaction Past Psychological History: No Psychological Hx Reported Smoking Status: Current every day smoker Past Alcohol Use History: None Reported Past Drug Use History: None Reported Additional History: Continues to smoke 1 pack/day for at least 50 years - Past Family History Mother Family Medical History: Cancer Additional Family Medical History / Comment(s): thyroid cancer Sister(s) Family Medical History: Cancer Medications and Allergies Home Medications Medication Instructions Recorded Confirmed Type Aspirin EC [Ecotrin Low Dose] 81 mg PO BID 08/09/24 11/11/24 History Cholecalciferol [Vitamin D3 (25 25 mcg PO HS 08/09/24 11/11/24 History Mcg = 1000 Iu)] HYDROcodone/APAP 7.5-325MG [[place] 1 tab PO Q4H PRN 08/09/24 11/11/24 History 7.5-325] Multivitamins, Thera [Multivitamin 1 tab PO DAILY 08/09/24 11/11/24 History (formulary)] Simvastatin [Zocor] 40 mg PO HS 08/09/24 11/11/24 History Benazepril HCl 10 mg PO DAILY 30 Days #30 tab 08/24/24 11/11/24 Rx Hydrocortisone [Cortef] 10 mg PO BID 7 Days #14 tab 08/24/24 11/11/24 Rx Metoprolol Succinate (ER) [Toprol 12.5 mg PO DAILY 11/09/24 11/11/24 History Xl] Allergies Allergy/AdvReac Type Severity Reaction Status Date / Time No Known Allergies Allergy Verified 11/09/24 15:45 Surgical - Exam Vital Signs Temp Pulse Resp BP Pulse Ox 98 F 61 18 134/67 100 11/11/24 11:14 11/11/24 11:14 11/11/24 11:14 11/11/24 11:14 11/11/24 11:14 CONSTITUTIONAL: Awake and alert, appears comfortable, cooperative, well- developed, well-nourished, no pain, no acute distress EYES: Pupils equal, round, reactive to light, normal ocular movement ENT: Moist mucous membranes without oral lesions present NECK: No masses, no bruits, trachea midline RESPIRATORY: Lungs sounds diminished in the bases bilaterally. Respirations even, nonlabored. Currently on room air with oxygen saturation 98%. Strong cough. No chest wall deformities. No clubbing or cyanosis present CARDIOVASCULAR: S1, S2 present. Regular rate and rhythm, sinus bradycardia on telemetry with heart rate in the upper 50s. Palpable peripheral pulses bilaterally. No edema present. No calf pain or tenderness noted. No significant lower extremity varicosities noted GASTROINTESTINAL: Abdomen soft, nontender, nondistended without masses or organomegaly noted. There is no rebound or guarding present. Active bowel sounds present 4 quadrants. GENITOURINARY: Deferred INTEGUMENTARY: Skin is warm and dry with evidence of good perfusion. Right radial T band in place NEUROLOGIC: Cranial nerves II through XII intact, normal coordination, no obvious motor or sensory deficits, speech is normal MUSKULOSKELETAL: Able to move all extremities, strength equal bilaterally, normal posture PSYCHIATRIC: Alert and oriented to person place and time, appropriate affect, intact judgment and insight CLINICAL FRAILTY SCORE 3 Results - Imaging Additional studies: Heart catheterization films reviewed with Dr. Kendall Assessment and Plan Assessment: Left main coronary artery disease History of abnormal stress test, syncopal episode x 2 Stage IIIa non-small cell lung cancer status post 3 rounds of carbo/Taxol, maintained on Opdivo Hypertension Hyperlipidemia Current chronic tobacco dependence Plan: The patient was seen and examined sitting up on a cart in the Extended Stay unit eating lunch in no acute distress. Chart/diagnostics reviewed. The usual pe rioperative course of open-heart surgery was discussed in detail with the patient and his , risks benefits reviewed, all questions were answered. The patient reports he has had no symptomatology, denies any chest pain or shortness of breath. The case was discussed in great detail with Dr. Kendall who will see the patient tomorrow. We did obtain records from oncology office regarding patient's lung cancer. According to the patient and his they were told in May that he is completely cancer free. PET scan completed here in August 2024 demonstrates new FDG avid right pulmonary hilum R10 lymph nodes as well as left lower neck lymph nodes concerning for recurrence. The patient does continue to smoke and states he has no intention of quitting. Smoking cessation counseling and education was provided anyways. Recommend continuing aspirin, statin, beta-dhara therapy. More recommendations to follow once Dr. Kendall has met with the patient. Thank you Dr. Alcantara for this consult. We will continue to follow along with you and make further recommendations as appropriate. I have personally seen and examined the patient, performed the documentation and the assessment and plan as written. Number of minutes spent on the visit: 30. CHER Weathers
--- NOTE | 2024-11-12 01:25 | P.PCN ---
Date of Procedure: 11/12/24 Operative Findings: Instantaneous wave-free ratio (iFR) measurement Performing physician Ravindra Watt MD Procedure performed IFR of the LAD and left main Indication The patient is a 69-year-old gentleman who sees Dr. Alcantara on a regular basis who was experiencing intermittent episode of syncope concerning of cardiac etiology. He underwent a stress test and that came in to be abnormal. In the light of that a heart catheterization was performed and revealed intermediate disease involving the distal left main coronary artery and also disease involving the LAD. In the light of that IFR was advised Approach Right radial artery Complication None Level of sedation Moderate with sedation length of 14 minutes Procedure description After diagnostic heart catheterization was performed by Dr. Alcantara the decision was made toward doing an IFR. After zeroing the Doppler wire and equalized in between the Dobler wire and guiding catheter which was JL 3.5 guiding catheter the left main was engaged and the IFR wire was advanced to the lesion distal to the LAD. Subsequently we did an IFR of both the left main and LAD lesion and that came in to be ischemic at 0.80. Subsequently the wire was pulled back to be proximal to the LAD lesion and distal to the left main lesion and that came in to be also ischemic at 0.80. At that point the procedure was completed with no complication Conclusion Intermediate lesion involving the distal left main documented to be flow- limiting by Doppler wire with IFR of 0.80 Postprocedure management The patient to be evaluated for CABG
[2024-11-12] MEDS: ATORVASTATIN 80 MG TAB PO STA (06:02)
[2024-11-12] MEDS: ASPIRIN 325 MG TAB PO STA (06:02)
[2024-11-12] MEDS: SODIUM CHLORIDE 0.9% 1,000 ML in EMPTY BAG 1 BAG IV SCH (06:02)
[2024-11-12 07:56] VITALS: BP 96/56; PULSE 59; RESP 17; TEMP 98.3
--- NOTE | 2024-11-12 10:02 | P.DS ---
Providers Date of admission: 11/11/24 Expected date of discharge: 11/12/24 Attending physician: Kye Alcantara MD Consults: 11/11/24 13:40 Consult Physician Routine Consulting Provider: Rishi Girard Consult Reason/Comments: CABG eval. LM disease and mid LAD Do you want consulting provider notified?: Yes 11/12/24 09:50 Consult Physician Routine Consulting Provider: Jacob Johnson Consult Reason/Comments: hx of lung CA, recent + PET scan, need PCI versus CABG Do you want consulting provider notified?: Yes Primary care physician: [facility] Course: Patient is a 69-year-old male with past medical history of lung cancer on maintenance immunotherapy. He presented to cardiology office because of recurrent syncope. As a part of workup he had a extended Holter monitor, echocardiogram and a stress test. Echo in extended Holter were within normal limits however his treadmill echo stress test showed stress-induced ischemic ECG changes and ischemic echocardiographic changes. For this he was brought in for a heart catheterization procedure. The heart catheterization procedure was done on 11/11/2024 as an outpatient procedure. Right radial approach with no immediate complications. In heart catheterization we found that he had 40 to 50% distal left main and 60 to 70% mid LAD stenosis. iFR assessment of these lesions showed hemodynamic significant blockages. For this cardiothoracic surgery team was consulted. Dr. Kendall, from CT surgery evaluated the patient and feels that he is a good candidate for surgery. However he did identify that patient has few active spots noticed on his recent PET scan. He would like opinion from his oncologist regarding his lung cancer status and then make decision about the surgery. He has an appointment coming up with his oncologist next week. At this time patient is stable from cardiovascular standpoint. Assessment: 50% distal left main and 70% mid LAD stenosis which is hemodynamically significant by IFR assessment CAD Essential hypertension Recurrent syncope Hypocortisolism Lung cancer on immunotherapy Procedures: Please refer to the cardiac catheterization report dictated separately. Patient Condition at Discharge: Good Plan - Discharge Summary Discharge Rx Participant: No New Discharge Prescriptions: New Atorvastatin [Lipitor] 40 mg PO HS 90 Days #90 tab Nitroglycerin Sl Tabs [Nitrostat] 0.4 mg SUBLINGUAL Q5M PRN 30 Days #30 tab PRN Reason: Chest Pain Continue Cholecalciferol [Vitamin D3 (25 Mcg = 1000 Iu)] 25 mcg PO HS Aspirin EC [Ecotrin Low Dose] 81 mg PO BID Hydrocortisone [Cortef] 10 mg PO BID 7 Days #14 tab Metoprolol Succinate (ER) [Toprol XL] 12.5 mg PO DAILY Multivitamins, Thera [Multivitamin (formulary)] 1 tab PO DAILY Benazepril HCl 10 mg PO DAILY 30 Days #30 tab Discontinued Simvastatin [Zocor] 40 mg PO HS HYDROcodone/APAP 7.5-325MG [[place] 7.5-325] 1 tab PO Q4H PRN PRN Reason: Pain Discharge Medication List Aspirin EC [Ecotrin Low Dose] 81 mg PO BID 08/09/24 [History] Cholecalciferol [Vitamin D3 (25 Mcg = 1000 Iu)] 25 mcg PO HS 08/09/24 [History] Multivitamins, Thera [Multivitamin (formulary)] 1 tab PO DAILY 08/09/24 [History] Benazepril HCl 10 mg PO DAILY 30 Days #30 tab 08/24/24 [Rx] Hydrocortisone [Cortef] 10 mg PO BID 7 Days #14 tab 08/24/24 [Rx] Metoprolol Succinate (ER) [Toprol XL] 12.5 mg PO DAILY 11/09/24 [History] Atorvastatin [Lipitor] 40 mg PO HS 90 Days #90 tab 11/12/24 [Rx] Nitroglycerin Sl Tabs [Nitrostat] 0.4 mg SUBLINGUAL Q5M PRN 30 Days #30 tab 11/12/24 [Rx] Follow up Appointment(s)/Referral(s): Kye Alcantara MD [Medical Doctor] - 11/18/24 2:00 pm (FOLLOW UP APPOINTMENT MADE. ) Deya Kendall MD [STAFF PHYSICIAN] - 1 Week (Our [place] office is in [facility], [address], [place]. Office phone number is . You can see Dr. Kendall or Dr. Girard)
[2024-11-12] MEDS: ASPIRIN 81 MG PO SCH (10:22)
[2024-11-12] MEDS ORDERED: ATORVASTATIN 40 MG TAB PO SCH (21:00)
== END 2024-11-12 10:26 | disposition home or self-care (01) ==
LOC: CATHCVL 10:38 → 3SCARD 13:24 → CATHCVL 11-12 10:26
PROVIDERS: ATTEND Student in an Organized Health Care Education/Training Program
DX: R94.39 Abnormal result of other cardiovascular function study (principal); I71.9 Aortic aneurysm of unspecified site, without rupture; E78.5 Hyperlipidemia, unspecified; I10 Essential (primary) hypertension; I25.10 Atherosclerotic heart disease of native coronary artery without angina pectoris; J44.9 Chronic obstructive pulmonary disease, unspecified; F17.210 Nicotine dependence, cigarettes, uncomplicated; Z79.899 Other long term (current) drug therapy; Z85.118 Personal history of other malignant neoplasm of bronchus and lung; Z90.89 Acquired absence of other organs
CPT/HCPCS: 99152; 93458; 93799; C1887; C1769 ×3; C1894; J2250; J1644 ×3; J2003; Q9967; J3010

== ENCOUNTER → 2025-01-31 | Outpatient (CLI) | payer MEDICARE ==
[2025-01-31 18:10] LABS: HCT 29.5 % (39.6-50.0); HGB 9.9 g/dL (13.0-17.0); MCH 32.4 pg (27.0-32.0); MCHC 33.6 g/dL (32.0-37.0); MCV 96.4 FL (80.0-97.0); Mean Platelet Volume 10.2 FL (9.5-12.2); NRBC Per 100 WBC 0 X 10*3/uL (0.00-0.01); Platelet Count 189 X 10*3/uL (140-440); RBC 3.06 X 10*6/uL (4.40-5.60); RDW 13.2 % (11.5-14.5); WBC 6.24 X 10*3/uL (4.50-10.00)
[2025-01-31 19:23] LABS: ALT 22 U/L (10-49); AST 25 U/L (14-35); Albumin 4.1 g/dL (3.8-4.9); Albumin/Globulin Ratio 1.58 Ratio (1.60-3.17); Alkaline Phosphatase 64 U/L (41-126); BUN/Creat Ratio 30.71 Ratio (12.00-20.00); Chloride 103 mmol/L (96-109); Chol/HDL Ratio 3.08 Ratio; Globulin 2.6 g/dL (1.6-3.3); Glucose 91 mg/dL (70-110); LDL Cholesterol,Calculated 78.6 mg/dL (0.0-131.0); NT-Pro-B-Type Natriuretic Pept 111 pg/mL (0-125); Potassium 4.5 mmol/L (3.5-5.5); Sodium 140 mmol/L (135-145); Total Bilirubin 0.5 mg/dL (0.3-1.2); Total Protein 6.7 g/dL (6.2-8.2)
== END | disposition home or self-care (01) ==
LOC: LABWHC1 13:03
PROVIDERS: ATTEND Student in an Organized Health Care Education/Training Program
DX: I50.9 Heart failure, unspecified (principal); I25.10 Atherosclerotic heart disease of native coronary artery without angina pectoris; E11.22 Type 2 diabetes mellitus with diabetic chronic kidney disease; N18.9 Chronic kidney disease, unspecified
CPT/HCPCS: 36415; 80053; 80061; 83036; 83880; 85027

== ENCOUNTER → 2025-02-02 | Outpatient (CLI) | payer MEDICARE ==
--- NOTE | 2025-02-04 19:31 | PE ---
EXAMINATION TYPE: PET CT fusion skull to thigh DATE OF EXAM: 02/02/2025 CLINICAL INDICATION:Male, 69 years old with history of C34.2 Lung ca; TECHNIQUE: Following the intravenous administration of 11.6 mCi of F-18 FDG, whole body images are performed from the skull base to the midthigh. Images are reviewed on the computer in the coronal, a xial, and sagittal planes. Reconstructed rotating images are created on independent workstation and reviewed on the computer. A non-contrast CT is performed in conjunction with the PET scan. Glucose level 102 mg/dL CT DLP: 264.54 mGycm, Automated exposure control for dose reduction was used. COMPARISON: CT 08/18/2024, PET/CT 08/18/2024, 03/07/2024, 01/07/2024, MRI: 08/23/2024 FINDINGS: Mediastinal SUV mean is 1.7. Hepatic parenchyma SUV mean is 1.9. SKULL BASE AND NECK: Left supraclavicular lymph node at the level of the thyroid gland demonstrates decreased FDG activity with a maximum SUV now of 4.9, previously 11.0. CHEST, MEDIASTINUM, AND HILAR REGION: Decreased FDG activity within the right pulmonary hilum with a maximum SUV now of 4.1, previously 6.4 . Decreased FDG activity within the subcarinal region with a maximum SUV of 4.6, previously 10.1. Decreased FDG activity within a subcentimeter right paratracheal lymph node with a maximum SUV of 6.3 , previously 7.0. Stable mild right upper lobe peripheral subpleural reticular scarring. ABDOMEN AND PELVIS: No suspicious radiotracer activity. MUSCULOSKELETAL STRUCTURES: No suspicious radiotracer activity. OTHER CT: Bilateral palatine tonsilloliths. Bilateral carotid bulb calcifications. Left anterior ches t wall Mediport catheter distal tip terminating in the left brachial cephalic vein near the confluenc e. Right hip osteoarthritic arthritic changes. Mild centrilobular emphysematous changes. Moderate cor onary artery calcification is most pronounced in the LAD. Mild to moderate atherosclerotic calcificat ion of the aorta and its branches. IMPRESSION: Positive response to therapy with decreasing FDG activity within previously seen left supraclavicular , right paratracheal, right hilar, and subcarinal lymph nodes. No new suspicious FDG active lesions. [facility], , 02/04/2025 7:29 PM
== END | disposition home or self-care (01) ==
LOC: RADPETMAIN 08:35
PROVIDERS: ATTEND Internal Medicine Hematology & Oncology
DX: C34.2 Malignant neoplasm of middle lobe, bronchus or lung (principal)
CPT/HCPCS: 78815; A9552